=== PATIENT | female | born 1935 | race Caucasian/White ===

== ENCOUNTER 2017-09-06 16:05 | Inpatient (IN) | payer OTHER ==
[~2017-09-06] VITALS: Ht 160 cm; Wt 45.4 kg
[~2017-09-06 16:05] MED LIST: AGGRENOX CAP1 BOTTLE PO; AMLODIPINE BESYL5 MG; APETIGEN L790 MG/15; ARICEPT5 MG; ASPIR 8181 MG; DEPAKOTE ER500 MG; DULCOLAX5 MG; HYDROCHLOROTHIA25 MG; LISINOPRIL20 MG; METOPROLOL SUCC25 MG; NAMENDA1 EACH; NORVASC5 MG; SIMVASTATIN20 MG; ZANTAC150 MG
[2017-09-06] MEDS ORDERED: PEPCID AC20 MG (16:13)
== END 2017-09-15 13:43 | disposition home or self-care (01) | DRG 446 ==
LOC: ER 16:05 → SEC-K 09-07 12:52 → MEDI 09-07 12:52
PROC: BF37ZZZ Magnetic Resonance Imaging (MRI) of Pancreas (ICD-10-PCS; 2017-09-07)
PROC: 3E0336Z Introduction of Nutritional Substance into Peripheral Vein, Percutaneous Approach (ICD-10-PCS; 2017-09-09)
PROC: 02HV33Z Insertion of Infusion Device into Superior Vena Cava, Percutaneous Approach (ICD-10-PCS; 2017-09-12)
PROC: 0F798DZ Dilation of Common Bile Duct with Intraluminal Device, Via Natural or Artificial Opening Endoscopic (ICD-10-PCS; principal; 2017-09-14)
DX: K80.51 Calculus of bile duct without cholangitis or cholecystitis with obstruction (principal); K29.00 Acute gastritis without bleeding; E86.0 Dehydration; I10 Essential (primary) hypertension; F03.90 Unspecified dementia, unspecified severity, without behavioral disturbance, psychotic disturbance, mood disturbance, and anxiety; K57.30 Diverticulosis of large intestine without perforation or abscess without bleeding; Z90.49 Acquired absence of other specified parts of digestive tract; Z78.1 Physical restraint status

== ENCOUNTER 2017-09-15 16:35 | Inpatient (IN) | payer OTHER ==
[~2017-09-15] VITALS: Ht 160 cm; Wt 45.4 kg
[~2017-09-15 16:35] MED LIST changes: +PEPCID AC20 MG
== END 2017-09-20 18:18 | disposition home or self-care (01) | DRG 439 ==
LOC: ER 16:35 → MEDI 09-16 10:50 → SEC-K 09-16 10:50 → MEDI 09-16 16:21
PROC: BW28ZZZ Computerized Tomography (CT Scan) of Head (ICD-10-PCS; principal; 2017-09-16)
DX: K85.90 Acute pancreatitis without necrosis or infection, unspecified (principal); K91.89 Other postprocedural complications and disorders of digestive system; K80.51 Calculus of bile duct without cholangitis or cholecystitis with obstruction; Y84.8 Other medical procedures as the cause of abnormal reaction of the patient, or of later complication, without mention of misadventure at the time of the procedure; Y92.098 Other place in other non-institutional residence as the place of occurrence of the external cause; I11.9 Hypertensive heart disease without heart failure; E86.0 Dehydration; G30.8 Other Alzheimer's disease; F02.80 Dementia in other diseases classified elsewhere, unspecified severity, without behavioral disturbance, psychotic disturbance, mood disturbance, and anxiety; K57.30 Diverticulosis of large intestine without perforation or abscess without bleeding; K29.00 Acute gastritis without bleeding

== ENCOUNTER 2018-03-27 09:30 | Day surgery (SDC) | payer OTHER | END 2018-03-27 15:11 | disposition home or self-care (01) | LOC: AMB-ENDOS 09:30 | DX: K80.50 Calculus of bile duct without cholangitis or cholecystitis without obstruction (principal) ==

== ENCOUNTER 2018-09-26 09:19 | Outpatient (CLI) | payer OTHER | END 2018-09-26 16:43 | disposition home or self-care (01) | LOC: EDBD 09:19 → TOM 09:19 | DX: K30 Functional dyspepsia (principal); R10.30 Lower abdominal pain, unspecified ==

== ENCOUNTER 2018-12-04 17:28 | Emergency (ER) | payer OTHER ==
[~2018-12-04] VITALS: Ht 157.5 cm; Wt 48.5 kg
== END 2018-12-04 22:42 | disposition home or self-care (01) ==
LOC: ER 17:28
DX: R55 Syncope and collapse (principal); E86.0 Dehydration

== ENCOUNTER 2019-02-26 09:05 | Outpatient (CLI) | payer OTHER | END 2019-02-26 09:14 | disposition home or self-care (01) | LOC: MAMO-SONO 09:05 | DX: Z12.31 Encounter for screening mammogram for malignant neoplasm of breast (principal); Z87.898 Personal history of other specified conditions; N60.11 Diffuse cystic mastopathy of right breast; N60.12 Diffuse cystic mastopathy of left breast ==

== ENCOUNTER 2019-03-24 13:14 | Outpatient (CLI) | payer OTHER | END 2019-03-24 15:10 | disposition home or self-care (01) | LOC: SONOGRAMA 13:14 | DX: N60.11 Diffuse cystic mastopathy of right breast (principal); N60.12 Diffuse cystic mastopathy of left breast; N63.32 Unspecified lump in axillary tail of the left breast ==

== ENCOUNTER 2019-04-22 15:41 | Emergency (ER) | payer OTHER ==
[~2019-04-22] VITALS: Ht 152.4 cm; Wt 63.5 kg
== END 2019-04-22 19:31 | disposition home or self-care (01) ==
LOC: ER 15:41
DX: I95.89 Other hypotension (principal); S19.89XA Other specified injuries of other specified part of neck, initial encounter; M54.2 Cervicalgia; R53.1 Weakness; G30.8 Other Alzheimer's disease; F02.80 Dementia in other diseases classified elsewhere, unspecified severity, without behavioral disturbance, psychotic disturbance, mood disturbance, and anxiety; X58.XXXA Exposure to other specified factors, initial encounter; Y93.89 Activity, other specified; Y92.128 Other place in nursing home as the place of occurrence of the external cause; Y99.8 Other external cause status

== ENCOUNTER → 2019-08-12 | Outpatient (CLI) | payer OTHER | END | disposition home or self-care (01) | LOC: SONOGRAMA 10:54 → MAMO-SONO 11:15 | DX: N60.11 Diffuse cystic mastopathy of right breast (principal); N60.12 Diffuse cystic mastopathy of left breast ==

== ENCOUNTER 2020-09-23 10:48 | Outpatient (CLI) | payer OTHER | END 2020-09-23 10:58 | disposition home or self-care (01) | LOC: NUCLEAR 10:48 | PROVIDERS: ATTEND General Practice | DX: I87.2 Venous insufficiency (chronic) (peripheral) (principal); I73.9 Peripheral vascular disease, unspecified ==

== ENCOUNTER 2020-09-23 13:57 | Outpatient (CLI) | payer OTHER | END 2020-09-23 14:12 | disposition HB | LOC: RAD 13:57 | DX: M51.37 Other intervertebral disc degeneration, lumbosacral region (principal); N60.01 Solitary cyst of right breast; Z12.31 Encounter for screening mammogram for malignant neoplasm of breast; M15.0 Primary generalized (osteo)arthritis; M05.79 Rheumatoid arthritis with rheumatoid factor of multiple sites without organ or systems involvement ==

== ENCOUNTER 2020-10-07 11:00 | Outpatient (CLI) | payer OTHER | END 2020-10-07 11:03 | disposition home or self-care (01) | LOC: NUCLEAR 11:00 | PROVIDERS: ATTEND General Practice | DX: I73.9 Peripheral vascular disease, unspecified (principal); I87.2 Venous insufficiency (chronic) (peripheral) ==

== ENCOUNTER 2022-02-09 18:31 | Emergency (ER) | payer OTHER ==
[~2022-02-09] VITALS: Ht 160 cm; Wt 59.0 kg
== END 2022-02-09 20:59 | disposition home or self-care (01) ==
LOC: ER 18:31
DX: R05.9 Cough, unspecified (principal); I10 Essential (primary) hypertension; Z20.822 Contact with and (suspected) exposure to COVID-19

== ENCOUNTER 2022-07-04 10:18 | Inpatient (IN) | payer OTHER ==
[~2022-07-04] VITALS: Ht 152.4 cm; Wt 49.9 kg
--- NOTE | 2022-07-04 10:29 | NUR ---
SE RECIBE PACIENTE FEMENINA ALERTA Y ORIENTADA EN PERSONA, LLEGA EN MEREDITH DE EMERGENCIA. FAMILIAR REFIERE QUE LA PACIENTE TIENE VOMITOS Y DIARREAS, DESDE EL TRISHA DE JACKI. CANALIZADA CON 0.9 NSS 250ML Y CANULA A 2LT/MIN.
--- NOTE | 2022-07-04 13:05 | NUR ---
PTE ES EVALUADA POR DRA DOMINGO. PTE SE ORIENTA Y VERBALIZA QUE ACCEPTA. SE EJECUTA ORDEN MEDICA EN JOHNSON TOTALIDAD. PEND A RESULTADOS
[2022-07-11] MEDS ORDERED: DICLOFENAC SODI50 MG (11:50)
[2022-07-11] MEDS ORDERED: SIMVASTATIN20 MG (11:50)
[2022-07-11] MEDS ORDERED: PANTOPRAZOLE SO40 MG (11:50)
[2022-07-11] MEDS ORDERED: VITAMIN D3250 MCG (11:50)
[2022-07-11] MEDS ORDERED: CLOPIDOGREL BIS75 MG (11:50)
[2022-07-11] MEDS ORDERED: MEMANTINE HCL5 MG (11:50)
[2022-07-11] MEDS ORDERED: LISINOPRIL20 MG (11:50)
[2022-07-11] MEDS ORDERED: DONEPEZIL HCL10 MG (11:50)
[2022-07-12] MEDS ORDERED: PROTEINEX-18 LI30 ML PO (10:01)
[2022-07-12] MEDS ORDERED: DECADRON6 MG PO (10:01)
== END 2022-07-12 13:03 | DRG 177 ==
LOC: ER 10:18 → ICU-2 20:52 → ICU 20:52 → MEDJ 07-06 16:34 → ICU 07-06 16:35 → MEDJ 07-07 00:15
PROVIDERS: ADMIT Internal Medicine; ATTEND Internal Medicine
PROC: BB24ZZZ Computerized Tomography (CT Scan) of Bilateral Lungs (ICD-10-PCS; principal; 2022-07-05)
PROC: 02HV33Z Insertion of Infusion Device into Superior Vena Cava, Percutaneous Approach (ICD-10-PCS; 2022-07-05)
PROC: 3E0F7GC Introduction of Other Therapeutic Substance into Respiratory Tract, Via Natural or Artificial Opening (ICD-10-PCS; 2022-07-05)
DX: U07.1 COVID-19 (principal); J12.82 Pneumonia due to coronavirus disease 2019; N17.8 Other acute kidney failure; N39.0 Urinary tract infection, site not specified; A09 Infectious gastroenteritis and colitis, unspecified; G30.8 Other Alzheimer's disease; F02.80 Dementia in other diseases classified elsewhere, unspecified severity, without behavioral disturbance, psychotic disturbance, mood disturbance, and anxiety; K21.9 Gastro-esophageal reflux disease without esophagitis; I12.9 Hypertensive chronic kidney disease with stage 1 through stage 4 chronic kidney disease, or unspecified chronic kidney disease; N18.9 Chronic kidney disease, unspecified; E86.0 Dehydration; K57.90 Diverticulosis of intestine, part unspecified, without perforation or abscess without bleeding; I11.9 Hypertensive heart disease without heart failure

== ENCOUNTER 2022-07-26 08:32 | Emergency (ER) | payer OTHER ==
[~2022-07-26] VITALS: Ht 157.5 cm; Wt 56.7 kg
[~2022-07-26 08:32] MED LIST changes: +CLOPIDOGREL BIS75 MG; +DECADRON6 MG PO; +DICLOFENAC SODI50 MG; +DONEPEZIL HCL10 MG; +MEMANTINE HCL5 MG; +PANTOPRAZOLE SO40 MG; +PROTEINEX-18 LI30 ML PO; +VITAMIN D3250 MCG
== END 2022-07-26 13:51 | disposition home or self-care (01) ==
LOC: ER 08:32
DX: I87.2 Venous insufficiency (chronic) (peripheral) (principal); Z45.2 Encounter for adjustment and management of vascular access device

== ENCOUNTER 2022-10-07 17:44 | Emergency (ER) | payer OTHER ==
[~2022-10-07] VITALS: Ht 160 cm; Wt 59.0 kg
== END 2022-10-07 23:29 | disposition home or self-care (01) ==
LOC: ER 17:44
DX: R55 Syncope and collapse (principal); G30.9 Alzheimer's disease, unspecified; F02.80 Dementia in other diseases classified elsewhere, unspecified severity, without behavioral disturbance, psychotic disturbance, mood disturbance, and anxiety

== ENCOUNTER 2023-05-27 00:06 | Emergency (ER) | payer OTHER ==
[~2023-05-27] VITALS: Ht 162.6 cm; Wt 45.4 kg
[2023-05-27] MEDS ORDERED: FERROCITE324 MG PO (00:57)
[2023-05-27 05:17] LABS: HEMATOCRIT 38.9 % (36.0-45.00); HEMOGLOBIN 12.8 g/dL (12.0-15.00); MEAN CELL VOLUME 88.7 fL (80.00-100.00); MEAN CORPUSCULAR HEMOGLOBIN 29.2 pg (27.00-32.0); MEAN CORPUSCULAR HGB CONC 32.9 g/dl (32.0-36.0); PLATELET COUNT 274 K/uL (150-450); RED BLOOD COUNT 4.38 M/uL (4.00-6.00); RED CELL DISTRIBUTION WIDTH 14.1 % (11.5-14.5)
[2023-05-27 05:26] LABS: CALCIUM 9.8 mg/dL (8.5-10.1); GFR 52.69; POTASSIUM 4.2 mEq/L (3.5-5.1)
== END 2023-05-27 07:44 | disposition home or self-care (01) ==
LOC: ER 00:06
DX: K29.70 Gastritis, unspecified, without bleeding (principal)
CPT/HCPCS: 36415; 96365; 96372; 99284; J2765; J3490

== ENCOUNTER 2024-01-30 11:11 | Emergency (ER) | payer OTHER ==
[~2024-01-30] VITALS: Ht 165.1 cm; Wt 63.5 kg
[~2024-01-30 11:11] MED LIST changes: +FERROCITE324 MG PO
[2024-01-30] MEDS ORDERED: ONDANSETRON HCL 2 MG/ML VIAL IV ONE (13:00)
[2024-01-30 13:31] LABS: HEMATOCRIT 31.3 % (36.0-45.00); HEMOGLOBIN 10.2 g/dL (12.0-15.00); MEAN CELL VOLUME 90.8 fL (80.00-100.00); MEAN CORPUSCULAR HEMOGLOBIN 29.8 pg (27.00-32.0); MEAN CORPUSCULAR HGB CONC 32.8 g/dl (32.0-36.0); PLATELET COUNT 325 K/uL (150-450); RED BLOOD COUNT 3.44 M/uL (4.00-6.00)
[2024-01-30 13:55] LABS: ALBUMIN 2.9 gm/dL (3.4-5.0); BILIRUBIN TOTAL 0.97 mg/dL (0.3-1.2); CALCIUM 9.5 mg/dL (8.5-10.1); CREATININE SERUM 0.9 mg/dL (0.55-1.02); GFR 59.37; GLOBULINA 4.3 G/DL (2.4-3.5); POTASSIUM 3.98 mEq/L (3.5-5.1); TOTAL PROTEIN 7.2 gm/dL (6.4-8.2)
== END 2024-01-30 19:08 | disposition home or self-care (01) ==
LOC: ER 11:11
PROVIDERS: General Practice
DX: R53.1 Weakness (principal); Z20.822 Contact with and (suspected) exposure to COVID-19
CPT/HCPCS: 36415; 96365; 99282; J2405

== ENCOUNTER 2024-05-15 10:29 | Inpatient (IN) | payer OTHER ==
[~2024-05-15] VITALS: Ht 152.4 cm; Wt 59.0 kg
[2024-05-15] MEDS ORDERED: 0.9 % SODIUM CHLORIDE 1,000 ML IV SCH (11:00)
[2024-05-15] MEDS ORDERED: FOLIC ACID0.8 M1 (11:02)
[2024-05-15] MEDS ORDERED: PROTONIX40 MG PO (11:02)
[2024-05-15] MEDS ORDERED: CYANOCOBALAMIN5 GM (11:02)
[2024-05-15 12:28] LABS: HEMATOCRIT 32.3 % (36.0-45.00); MEAN CELL VOLUME 89.3 fL (80.00-100.00); PLATELET COUNT 369 K/uL (150-450); RED BLOOD COUNT 3.62 M/uL (4.00-6.00)
[2024-05-15 12:31] LABS: HEMOGLOBIN 10.3 g/dL (12.0-15.00); MEAN CORPUSCULAR HEMOGLOBIN 28.4 pg (27.00-32.0)
[2024-05-15 13:05] LABS: ALBUMIN 2.3 gm/dL (3.4-5.0); BILIRUBIN TOTAL 0.86 mg/dL (0.3-1.2); CREATININE SERUM 1.15 mg/dL (0.55-1.02); GFR 44.74; GLOBULINA 5.4 G/DL (2.4-3.5); POTASSIUM 3.57 mEq/L (3.5-5.1); TOTAL PROTEIN 7.7 gm/dL (6.4-8.2)
[2024-05-15 14:51] LABS: URINE APPEARANCE Clear; URINE BILIRRUBIN Small (NEGATIVE); URINE BLOOD Trace; URINE COLOR Dark Yellow; URINE GLUCOSE Negative (NEGATIVE); URINE KETONE Negative (NEGATIVE); URINE LEUKOCYTE Small; URINE NITRATE Negative; URINE PROTEIN 30 (NEGATIVE)
[2024-05-15 14:52] LABS: URINE RBC 30.9 uL (0.0-20.8)
[2024-05-15 15:11] LABS: URINE BACTERIA > 9821.5 uL (0.0-1933); URINE CAST 0.91 uL (0.0-1.40)
[2024-05-15 15:12] LABS: URINE MUCUS SCANT
[2024-05-15] MEDS ORDERED: CEFTRIAXONE SODIUM 1,000 MG VIAL IV ONE (15:30)
[2024-05-15] MEDS ORDERED: CEFTRIAXONE SODIUM 2,000 MG in 0.9 % SODIUM CHLORIDE 100 ML IV SCH (17:39)
[2024-05-15] MEDS ORDERED: INSULIN LISPRO 1,000 UNIT/10 ML UNITS SUBCUTANEO PRN (17:45)
[2024-05-15] MEDS ORDERED: ONDANSETRON HCL 4 MG in 0.9 % SODIUM CHLORIDE 50 ML IV PRN (17:45)
[2024-05-15] MEDS ORDERED: DEXTROSE 50 % IN WATER 0.5 G/ML DISP.SYRIN IV PRN (17:45)
[2024-05-15] MEDS ORDERED: ACETAMINOPHEN 500 MG GEL..CAP PO PRN (17:45)
[2024-05-15] MEDS ORDERED: SODIUM CHLORIDE 0.45 % 1,000 ML IV SCH (17:45)
[2024-05-15 19:52] LABS: INR 1.09; PARTIAL THROMBOPLASTIN TIME 28.3 SECONDS (22.0-34.0); PROTHROMBIN TIME 11.8 SECONDS (9.0-11.5)
[2024-05-15 19:53] LABS: MAGNESIUM 2.4 mg/dL (1.8-2.4); PHOSPHOROUS 2.3 mg/dL (2.5-4.9)
[2024-05-15 19:56] LABS: C-REACTIVE PROTEIN 12.7 MG/DL (0.00-0.29)
[2024-05-15 22:49] VITALS: BP 134/70; O2SAT 97
[2024-05-16 00:54] VITALS: BP 116/71; O2SAT 98
[2024-05-16 08:00] VITALS: BP 145/80
[2024-05-16] MEDS ORDERED: CLOPIDOGREL BISULFATE 75 MG TABLET PO SCH (09:00)
[2024-05-16] MEDS ORDERED: ENOXAPARIN SODIUM 40 MG/0.4 ML SYRINGE SUBCUTANEO SCH (09:00)
[2024-05-16] MEDS ORDERED: FAMOTIDINE/PF 20 MG in 0.9 % SODIUM CHLORIDE 8 ML IV PUSH SCH (09:00)
[2024-05-16] MEDS ORDERED: LISINOPRIL 20 MG TABLET PO SCH (09:00)
[2024-05-16] MEDS ORDERED: SIMVASTATIN 20 MG TABLET PO SCH (17:00)
[2024-05-16] MEDS ORDERED: DONEPEZIL HCL 10 MG TABLET PO SCH (17:00)
[2024-05-16 17:32] VITALS: BP 127/78; O2SAT 100
[2024-05-17 00:34] VITALS: BP 134/67
[2024-05-17 08:36] VITALS: BP 123/73; O2SAT 98
[2024-05-17 17:13] VITALS: BP 120/68; O2SAT 98
[2024-05-18 00:55] VITALS: BP 55/84
[2024-05-18 08:03] LABS: HEMATOCRIT 27.1 % (36.0-45.00); MEAN CELL VOLUME 86.7 fL (80.00-100.00); MEAN CORPUSCULAR HEMOGLOBIN 28.9 pg (27.00-32.0); MEAN CORPUSCULAR HGB CONC 33.3 g/dl (32.0-36.0); PLATELET COUNT 306 K/uL (150-450); RED BLOOD COUNT 3.13 M/uL (4.00-6.00); RED CELL DISTRIBUTION WIDTH 14.7 % (11.5-14.5)
[2024-05-18 08:22] VITALS: BP 150/87; O2SAT 98
[2024-05-18 08:34] LABS: ALBUMIN 1.8 gm/dL (3.4-5.0); BILIRUBIN TOTAL 0.4 mg/dL (0.3-1.2); CREATININE SERUM 0.72 mg/dL (0.55-1.02); GFR 76.8; MAGNESIUM 1.8 mg/dL (1.8-2.4); PHOSPHOROUS 2.4 mg/dL (2.5-4.9); POTASSIUM 3.63 mEq/L (3.5-5.1); TOTAL PROTEIN 5.8 gm/dL (6.4-8.2)
[2024-05-18 08:40] LABS: C-REACTIVE PROTEIN 14.7 MG/DL (0.00-0.29)
[2024-05-18 17:07] VITALS: BP 141/80; O2SAT 97
[2024-05-19 01:05] VITALS: BP 127/76
[2024-05-19 08:12] VITALS: BP 105/56; O2SAT 99
[2024-05-19 15:49] LABS: URINE APPEARANCE Clear; URINE BILIRRUBIN Negative (NEGATIVE); URINE COLOR Yellow; URINE GLUCOSE Negative (NEGATIVE); URINE KETONE Negative (NEGATIVE); URINE LEUKOCYTE Negative; URINE NITRATE Negative; URINE PROTEIN Negative (NEGATIVE); URINE UROBILINOGEN 0.2 E.U./dl
[2024-05-19 15:52] LABS: URINE EPITHELIAL CELLS 9.7 uL (0.0-38.8); URINE RBC 26.8 uL (0.0-20.8); URINE WBC 4.4 uL (0.0-23.2)
[2024-05-19 16:12] LABS: URINE BACTERIA 1.2 uL (0.0-1933); URINE BLOOD TRACE
[2024-05-19 16:55] VITALS: BP 138/70
[2024-05-20 00:31] VITALS: BP 126/78; O2SAT 95
[2024-05-20 08:07] VITALS: BP 130/66; O2SAT 99
[2024-05-20 16:25] VITALS: BP 152/78
[2024-05-20 18:20] LABS: HEMATOCRIT 26.8 % (36.0-45.00); HEMOGLOBIN 8.8 g/dL (12.0-15.00); MEAN CORPUSCULAR HEMOGLOBIN 28.9 pg (27.00-32.0); MEAN CORPUSCULAR HGB CONC 32.8 g/dl (32.0-36.0); PLATELET COUNT 287 K/uL (150-450); RED BLOOD COUNT 3.04 M/uL (4.00-6.00); RED CELL DISTRIBUTION WIDTH 14.7 % (11.5-14.5)
[2024-05-20 18:39] LABS: ALBUMIN 1.8 gm/dL (3.4-5.0); BILIRUBIN TOTAL 0.26 mg/dL (0.3-1.2); CALCIUM 8.4 mg/dL (8.5-10.1); CREATININE SERUM 0.72 mg/dL (0.55-1.02); GFR 76.8; MAGNESIUM 1.8 mg/dL (1.8-2.4); PHOSPHOROUS 2.7 mg/dL (2.5-4.9); POTASSIUM 4.24 mEq/L (3.5-5.1); TOTAL PROTEIN 5.8 gm/dL (6.4-8.2)
[2024-05-21 01:17] VITALS: BP 132/66; O2SAT 99
[2024-05-21 08:55] VITALS: BP 131/73; O2SAT 99
[2024-05-21] MEDS ORDERED: FAMOtidine 20 MG TABLET PO SCH (09:00)
[2024-05-21 17:51] VITALS: BP 119/75
[2024-05-22 02:48] VITALS: BP 140/68; O2SAT 95
[2024-05-22] MEDS ORDERED: MIDAZOLAM HCL 2 MG/2 ML VIAL IV ONE (12:30)
[2024-05-22 17:57] VITALS: BP 116/78; O2SAT 99
[2024-05-22 18:07] VITALS: BP 154/83; O2SAT 98
[2024-05-23 01:30] VITALS: BP 126/70; O2SAT 97
[2024-05-23 08:36] VITALS: BP 134/74
[2024-05-23 16:11] VITALS: BP 133/52
[2024-05-24 01:32] VITALS: BP 120/70; O2SAT 97
[2024-05-24 08:52] VITALS: BP 117/53; O2SAT 97
== END 2024-05-24 10:52 | disposition home or self-care (01) | DRG 690 ==
LOC: ER 10:29 → MEDJ 18:54
PROVIDERS: Emergency Medicine; General Practice; Internal Medicine Infectious Disease; ADMIT Internal Medicine; ATTEND Internal Medicine
PROC: B020ZZZ Computerized Tomography (CT Scan) of Brain (ICD-10-PCS; 2024-05-15)
PROC: 0DH63UZ Insertion of Feeding Device into Stomach, Percutaneous Approach (ICD-10-PCS; 2024-05-22)
PROC: 3E0G76Z Introduction of Nutritional Substance into Upper GI, Via Natural or Artificial Opening (ICD-10-PCS; principal; 2024-05-23)
DX: N39.0 Urinary tract infection, site not specified (principal); E87.0 Hyperosmolality and hypernatremia; E46 Unspecified protein-calorie malnutrition; E86.0 Dehydration; R73.9 Hyperglycemia, unspecified; D64.89 Other specified anemias; R13.19 Other dysphagia; R63.0 Anorexia; R73.03 Prediabetes; G30.8 Other Alzheimer's disease; F02.80 Dementia in other diseases classified elsewhere, unspecified severity, without behavioral disturbance, psychotic disturbance, mood disturbance, and anxiety; E78.5 Hyperlipidemia, unspecified; Z68.23 Body mass index [BMI] 23.0-23.9, adult

== ENCOUNTER 2024-06-02 14:27 | Inpatient (IN) | payer OTHER ==
[~2024-06-02] VITALS: Ht 162.6 cm; Wt 54.4 kg
[~2024-06-02 14:27] MED LIST changes: +CYANOCOBALAMIN5 GM; +FOLIC ACID0.8 M1; +PROTONIX40 MG PO
[2024-06-02 17:02] LABS: HEMATOCRIT 28.3 % (36.0-45.00); HEMOGLOBIN 9.4 g/dL (12.0-15.00); MEAN CELL VOLUME 87.4 fL (80.00-100.00); MEAN CORPUSCULAR HEMOGLOBIN 28.9 pg (27.00-32.0); MEAN CORPUSCULAR HGB CONC 33.1 g/dl (32.0-36.0); PLATELET COUNT 477 K/uL (150-450); RED BLOOD COUNT 3.24 M/uL (4.00-6.00); RED CELL DISTRIBUTION WIDTH 14.9 % (11.5-14.5)
[2024-06-02] MEDS ORDERED: CEFTRIAXONE SODIUM 1,000 MG VIAL IV ONE (17:30)
[2024-06-02] MEDS ORDERED: 0.9 % SODIUM CHLORIDE 1,000 ML IV SCH (18:00)
[2024-06-02] MEDS ORDERED: ONDANSETRON HCL 4 MG in 0.9 % SODIUM CHLORIDE 50 ML IV PRN (18:00)
[2024-06-02] MEDS ORDERED: 0.9 % SODIUM CHLORIDE 1,000 ML IV ONE (18:00)
[2024-06-02] MEDS ORDERED: ACETAMINOPHEN 500 MG GEL..CAP PO PRN (18:00)
[2024-06-02 18:30] LABS: ALBUMIN 2.2 gm/dL (3.4-5.0); BILIRUBIN TOTAL 1.1 mg/dL (0.3-1.2); CALCIUM 9.5 mg/dL (8.5-10.1); CREATININE SERUM 0.78 mg/dL (0.55-1.02); GFR 70.03; GLOBULINA 5.7 G/DL (2.4-3.5); INR 1.08; POTASSIUM 4.06 mEq/L (3.5-5.1); PROTHROMBIN TIME 11.7 SECONDS (9.0-11.5); TOTAL PROTEIN 7.9 gm/dL (6.4-8.2)
[2024-06-02 18:47] LABS: PH,URINE 5.5 (5.0-8.0); URINE APPEARANCE Clear; URINE BILIRRUBIN Small (NEGATIVE); URINE BLOOD Negative; URINE COLOR Dark Yellow; URINE GLUCOSE Negative (NEGATIVE); URINE KETONE Trace (NEGATIVE); URINE LEUKOCYTE Small; URINE NITRATE Negative; URINE PROTEIN Trace (NEGATIVE)
[2024-06-02 18:48] LABS: URINE BACTERIA 425.8 uL (0.0-1933); URINE EPITHELIAL CELLS 29.2 uL (0.0-38.8); URINE RBC 24.5 uL (0.0-20.8); URINE WBC 22.4 uL (0.0-23.2)
[2024-06-02 19:03] LABS: URINE CAST 1.37 uL (0.0-1.40)
[2024-06-02 19:04] LABS: URINE EPITHELIAL CELLS 0-4 /HPF
[2024-06-02 23:48] VITALS: BP 110/76; O2SAT 100
[2024-06-03 04:30] VITALS: BP 121/75
[2024-06-03] MEDS ORDERED: ENOXAPARIN SODIUM 40 MG/0.4 ML SYRINGE SUBCUTANEO SCH (09:00)
[2024-06-03] MEDS ORDERED: FAMOTIDINE/PF 20 MG in 0.9 % SODIUM CHLORIDE 8 ML IV PUSH SCH (09:00)
[2024-06-03] MEDS ORDERED: MEMANTINE HCL 5 MG TABLET PO SCH (09:00)
[2024-06-03] MEDS ORDERED: CEFTRIAXONE SODIUM 2,000 MG in 0.9 % SODIUM CHLORIDE 100 ML IV SCH (09:00)
[2024-06-03 09:56] VITALS: BP 120/77; O2SAT 97
[2024-06-03] MEDS ORDERED: SIMVASTATIN 20 MG TABLET PO SCH (17:00)
[2024-06-03] MEDS ORDERED: CLOPIDOGREL BISULFATE 75 MG TABLET PO SCH (17:00)
[2024-06-03] MEDS ORDERED: DONEPEZIL HCL 10 MG TABLET PO SCH (17:00)
[2024-06-03] MEDS ORDERED: FERROUS SULFATE 325 MG TABLET.EC PO SCH (17:00)
[2024-06-03 18:45] VITALS: BP 123/73; O2SAT 96
[2024-06-03] MEDS ORDERED: MEROPENEM 500 MG/VIAL VIAL IV SCH (20:00)
[2024-06-04 02:09] VITALS: BP 105/65
[2024-06-04 05:18] LABS: ALBUMIN 1.8 gm/dL (3.4-5.0); BILIRUBIN TOTAL 1.81 mg/dL (0.3-1.2); CALCIUM 8.7 mg/dL (8.5-10.1); CREATININE SERUM 0.59 mg/dL (0.55-1.02); GFR 96.64; GLOBULINA 3.8 G/DL (2.4-3.5); PHOSPHOROUS 2.1 mg/dL (2.5-4.9); POTASSIUM 3.68 mEq/L (3.5-5.1); TOTAL PROTEIN 5.6 gm/dL (6.4-8.2)
[2024-06-04 05:20] LABS: HEMATOCRIT 24.5 % (36.0-45.00); HEMOGLOBIN 8.1 g/dL (12.0-15.00); MEAN CELL VOLUME 87.5 fL (80.00-100.00); MEAN CORPUSCULAR HEMOGLOBIN 28.9 pg (27.00-32.0); MEAN CORPUSCULAR HGB CONC 33.3 g/dl (32.0-36.0); PLATELET COUNT 367 K/uL (150-450); RED CELL DISTRIBUTION WIDTH 14.9 % (11.5-14.5)
[2024-06-04 05:24] LABS: C-REACTIVE PROTEIN 13.5 MG/DL (0.00-0.29)
[2024-06-04 08:53] VITALS: BP 110/70; O2SAT 98
[2024-06-04] MEDS ORDERED: CEFTAZIDIME/AVIBACTAM 2.5 GM VIAL IV SCH (13:00)
[2024-06-04 18:17] VITALS: BP 120/74
[2024-06-05 02:02] VITALS: BP 108/62
[2024-06-05 04:57] LABS: URINE APPEARANCE Clear; URINE BILIRRUBIN Small (NEGATIVE); URINE BLOOD Small; URINE COLOR Dark Yellow; URINE GLUCOSE Negative (NEGATIVE); URINE KETONE Trace (NEGATIVE); URINE LEUKOCYTE Small; URINE NITRATE Negative; URINE PROTEIN 30 (NEGATIVE)
[2024-06-05 05:00] LABS: URINE BACTERIA 22.6 uL (0.0-1933); URINE EPITHELIAL CELLS 11.7 uL (0.0-38.8); URINE RBC 145.8 uL (0.0-20.8); URINE WBC 50.7 uL (0.0-23.2)
[2024-06-05 05:40] LABS: URINE CAST 0.76 uL (0.0-1.40)
[2024-06-05 07:04] LABS: PLATELET COUNT 341 K/uL (150-450); RED BLOOD COUNT 2.57 M/uL (4.00-6.00); RED CELL DISTRIBUTION WIDTH 15.5 % (11.5-14.5)
[2024-06-05 07:11] LABS: ALBUMIN 1.7 gm/dL (3.4-5.0); BILIRUBIN TOTAL 1.13 mg/dL (0.3-1.2); BILIRUBIN,CONJUGATED 0.89 mg/dL (0.0-0.2); BILIRUBIN,UNCONJUGATED 0.24 mg/dL (0.0-0.6); CALCIUM 8.4 mg/dL (8.5-10.1); CREATININE SERUM 0.46 mg/dL (0.55-1.02); GFR 128.8; GLOBULINA 3.9 G/DL (2.4-3.5); MAGNESIUM 1.8 mg/dL (1.8-2.4); PHOSPHOROUS 2.1 mg/dL (2.5-4.9); POTASSIUM 3.65 mEq/L (3.5-5.1); TOTAL PROTEIN 5.6 gm/dL (6.4-8.2)
[2024-06-05 07:15] LABS: C-REACTIVE PROTEIN 12.6 MG/DL (0.00-0.29)
[2024-06-05 08:08] LABS: HEMATOCRIT 22.1 % (36.0-45.00); HEMOGLOBIN 7.5 g/dL (12.0-15.00); MEAN CORPUSCULAR HEMOGLOBIN 29.1 pg (27.00-32.0)
[2024-06-05] MEDS ORDERED: CEFTAZIDIME/AVIBACTAM 2.5 GM VIAL IV SCH (09:00)
[2024-06-05 09:27] VITALS: BP 115/81; O2SAT 99
[2024-06-05] MEDS ORDERED: SOD FERRIC GLUC COMPLX/SUCROSE 125 MG in 0.9 % SODIUM CHLORIDE 100 ML IV SCH (12:45)
[2024-06-05] MEDS ORDERED: AMINO ACIDS 1 EACH TABLET PO SCH (13:00)
[2024-06-05] MEDS ORDERED: ALBUMIN HUMAN-25 0.25GM/ML (50ML) VIAL IV SCH (17:00)
[2024-06-05 19:58] VITALS: BP 104/54; O2SAT 99
[2024-06-06 02:26] VITALS: BP 144/73; O2SAT 96
[2024-06-06 10:31] VITALS: BP 132/71; O2SAT 93
[2024-06-06 12:40] LABS: HEMATOCRIT 34.1 % (36.0-45.00); HEMOGLOBIN 11.6 g/dL (12.0-15.00); MEAN CELL VOLUME 83.8 fL (80.00-100.00); MEAN CORPUSCULAR HEMOGLOBIN 28.5 pg (27.00-32.0); PLATELET COUNT 336 K/uL (150-450); RED BLOOD COUNT 4.07 M/uL (4.00-6.00); RED CELL DISTRIBUTION WIDTH 15.5 % (11.5-14.5)
[2024-06-06 14:16] LABS: ALBUMIN 1.9 gm/dL (3.4-5.0); BILIRUBIN TOTAL 1.07 mg/dL (0.3-1.2); BILIRUBIN,CONJUGATED 0.51 mg/dL (0.0-0.2); BILIRUBIN,UNCONJUGATED 0.56 mg/dL (0.0-0.6); CALCIUM 8.7 mg/dL (8.5-10.1); CREATININE SERUM 0.41 mg/dL (0.55-1.02); GFR 147.09; POTASSIUM 3.75 mEq/L (3.5-5.1); TOTAL PROTEIN 5.9 gm/dL (6.4-8.2)
[2024-06-06 14:18] LABS: AMYLASE 108 U/L (25-115)
[2024-06-06 14:21] LABS: LIPASE 170 U/L (13-75)
[2024-06-06 19:51] VITALS: BP 140/82; O2SAT 94
[2024-06-06] MEDS ORDERED: VANCOMYCIN HCL 1,000 MG VIAL IV SCH (21:00)
[2024-06-07 03:56] VITALS: BP 118/52; O2SAT 95
[2024-06-07 08:55] VITALS: BP 164/80; O2SAT 96
[2024-06-07] MEDS ORDERED: URSODIOL 300 MG CAPSULE PO NR (10:15)
[2024-06-07] MEDS ORDERED: URSODIOL 300 MG CAPSULE PO SCH (17:00)
[2024-06-07 18:19] VITALS: BP 160/82; O2SAT 96
[2024-06-08 01:13] VITALS: BP 148/73; O2SAT 93
[2024-06-08 08:00] LABS: HEMATOCRIT 32.2 % (36.0-45.00); MEAN CELL VOLUME 84.9 fL (80.00-100.00); MEAN CORPUSCULAR HEMOGLOBIN 28.9 pg (27.00-32.0); MEAN CORPUSCULAR HGB CONC 34.1 g/dl (32.0-36.0); PLATELET COUNT 326 K/uL (150-450); RED CELL DISTRIBUTION WIDTH 15.8 % (11.5-14.5)
[2024-06-08 11:26] VITALS: BP 147/70; O2SAT 95
[2024-06-08] MEDS ORDERED: AMINO ACIDS/PROTEIN HYDROLYS 30 ML BLIST.PACK PO SCH (17:00)
[2024-06-08 17:51] VITALS: BP 160/85; O2SAT 95
[2024-06-09 01:07] VITALS: BP 160/78; O2SAT 98
[2024-06-09 07:12] LABS: ALBUMIN 1.9 gm/dL (3.4-5.0); BILIRUBIN TOTAL 0.73 mg/dL (0.3-1.2); CALCIUM 8.9 mg/dL (8.5-10.1); CREATININE SERUM 0.38 mg/dL (0.55-1.02); GFR 160.57; GLOBULINA 3.8 G/DL (2.4-3.5); PHOSPHOROUS 2.2 mg/dL (2.5-4.9); POTASSIUM 3.77 mEq/L (3.5-5.1); TOTAL PROTEIN 5.7 gm/dL (6.4-8.2)
[2024-06-09 08:32] VITALS: BP 164/80
[2024-06-09 19:03] VITALS: BP 184/77
[2024-06-10 00:24] VITALS: BP 180/78; O2SAT 98
[2024-06-10 06:39] LABS: HEMATOCRIT 33.8 % (36.0-45.00); MEAN CELL VOLUME 86.7 fL (80.00-100.00); PLATELET COUNT 350 K/uL (150-450); RED CELL DISTRIBUTION WIDTH 15.7 % (11.5-14.5)
[2024-06-10 07:02] LABS: HEMOGLOBIN 11.2 g/dL (12.0-15.00); MEAN CORPUSCULAR HEMOGLOBIN 28.7 pg (27.00-32.0)
[2024-06-10 07:11] LABS: ALBUMIN 1.9 gm/dL (3.4-5.0); BILIRUBIN TOTAL 0.79 mg/dL (0.3-1.2); CREATININE SERUM 0.37 mg/dL (0.55-1.02); GFR 165.59; GLOBULINA 3.6 G/DL (2.4-3.5); MAGNESIUM 1.9 mg/dL (1.8-2.4); PHOSPHOROUS 2.5 mg/dL (2.5-4.9); POTASSIUM 3.7 mEq/L (3.5-5.1); TOTAL PROTEIN 5.5 gm/dL (6.4-8.2)
[2024-06-10 07:12] LABS: C-REACTIVE PROTEIN 8.45 MG/DL (0.00-0.29)
[2024-06-10 08:00] VITALS: BP 158/75
[2024-06-10 18:18] VITALS: BP 174/66
[2024-06-10] MEDS ORDERED: VANCOMYCIN HCL 5 MG/ML REDILUIDO IV SCH (21:00)
[2024-06-10] MEDS ORDERED: VANCOMYCIN HCL 1,000 MG VIAL IV SCH (21:00)
[2024-06-10 21:57] VITALS: BP 126/60
[2024-06-11 00:20] VITALS: BP 149/74; O2SAT 97
[2024-06-11 09:35] VITALS: BP 151/76; O2SAT 96
[2024-06-11 15:35] LABS: ALBUMIN 1.7 gm/dL (3.4-5.0); BILIRUBIN TOTAL 0.5 mg/dL (0.3-1.2); BILIRUBIN,CONJUGATED 0.25 mg/dL (0.0-0.2); BILIRUBIN,UNCONJUGATED 0.25 mg/dL (0.0-0.6); TOTAL PROTEIN 5.4 gm/dL (6.4-8.2)
[2024-06-11] MEDS ORDERED: ANIDULAFUNGIN 100 MG VIAL IV SCH (17:00)
[2024-06-11 17:54] LABS: ABG PH 7.486 (7.35-7.45); ABG PO2 84.2 mmHg (80-100); ABG pCO2 38.3 mmHg (35-45); BASE EXCESS 4.7 mmol/l; BICARBONATE 28.3 mmol/l (23-25); SaO2 91.3 %; Tco2 29.4 mmol/l; allen test SATISFACTORY; o2 21 %; puncture site BRADIAL RIGHT
[2024-06-11 18:37] VITALS: BP 154/81
[2024-06-12 02:01] VITALS: BP 109/53; O2SAT 99
[2024-06-12 06:47] LABS: HEMATOCRIT 30.7 % (36.0-45.00); HEMOGLOBIN 10.1 g/dL (12.0-15.00); MEAN CELL VOLUME 87.7 fL (80.00-100.00); MEAN CORPUSCULAR HEMOGLOBIN 28.8 pg (27.00-32.0); MEAN CORPUSCULAR HGB CONC 32.9 g/dl (32.0-36.0); PLATELET COUNT 336 K/uL (150-450); RED CELL DISTRIBUTION WIDTH 15.6 % (11.5-14.5)
[2024-06-12 07:10] LABS: ALBUMIN 1.7 gm/dL (3.4-5.0); BILIRUBIN TOTAL 0.4 mg/dL (0.3-1.2); CALCIUM 8.6 mg/dL (8.5-10.1); CREATININE SERUM 0.41 mg/dL (0.55-1.02); GFR 147.09; GLOBULINA 3.6 G/DL (2.4-3.5); POTASSIUM 3.98 mEq/L (3.5-5.1); TOTAL PROTEIN 5.3 gm/dL (6.4-8.2)
[2024-06-12 07:12] LABS: C-REACTIVE PROTEIN 6.82 MG/DL (0.00-0.29)
[2024-06-12 09:13] VITALS: BP 127/66; O2SAT 98
[2024-06-12] MEDS ORDERED: ANIDULAFUNGIN 100 MG VIAL IV SCH (12:00)
[2024-06-12 18:09] VITALS: BP 112/55
[2024-06-13 00:17] VITALS: BP 140/77; O2SAT 99
[2024-06-13 08:53] VITALS: BP 155/66; O2SAT 98
[2024-06-13 16:47] VITALS: BP 155/82
[2024-06-14 02:50] VITALS: BP 127/83; O2SAT 95
[2024-06-14 08:52] VITALS: BP 130/63; O2SAT 96
[2024-06-14 08:52] LABS: ALBUMIN 1.7 gm/dL (3.4-5.0); CALCIUM 8.7 mg/dL (8.5-10.1); CREATININE SERUM 0.4 mg/dL (0.55-1.02); GFR 151.34; MAGNESIUM 2.1 mg/dL (1.8-2.4); PHOSPHOROUS 2.9 mg/dL (2.5-4.9); POTASSIUM 4.34 mEq/L (3.5-5.1)
[2024-06-14 17:48] VITALS: BP 159/77; O2SAT 96
[2024-06-15 02:46] VITALS: BP 96/68; O2SAT 95
[2024-06-15 09:11] VITALS: BP 137/71; O2SAT 98
[2024-06-15 09:52] LABS: CALCIUM 9.3 mg/dL (8.5-10.1); CREATININE SERUM 0.42 mg/dL (0.55-1.02); GFR 143.05; POTASSIUM 4.36 mEq/L (3.5-5.1)
[2024-06-15 16:57] VITALS: BP 178/76; O2SAT 94
[2024-06-15 21:58] LABS: URINE APPEARANCE Clear; URINE BILIRRUBIN Negative (NEGATIVE); URINE BLOOD NHT; URINE COLOR Yellow; URINE GLUCOSE Negative (NEGATIVE); URINE KETONE Negative (NEGATIVE); URINE LEUKOCYTE Trace; URINE NITRATE Negative; URINE PROTEIN 30 (NEGATIVE); URINE UROBILINOGEN 0.2 E.U./dl
[2024-06-15 22:01] LABS: URINE BACTERIA 54.1 uL (0.0-1933); URINE EPITHELIAL CELLS 14.5 uL (0.0-38.8); URINE RBC 31.2 uL (0.0-20.8); URINE WBC 30.8 uL (0.0-23.2)
[2024-06-15 22:11] LABS: URINE CAST 0.45 uL (0.0-1.40)
[2024-06-15 22:12] LABS: URINE YEAST FEW /hpf
[2024-06-16 02:52] VITALS: BP 148/83; O2SAT 93
[2024-06-16 09:11] VITALS: BP 165/80
[2024-06-16 10:43] LABS: URINE APPEARANCE Clear; URINE BILIRRUBIN Negative (NEGATIVE); URINE BLOOD Small; URINE COLOR Yellow; URINE GLUCOSE Negative (NEGATIVE); URINE KETONE Negative (NEGATIVE); URINE LEUKOCYTE Negative; URINE NITRATE Negative; URINE PROTEIN 30 (NEGATIVE); URINE UROBILINOGEN 0.2 E.U./dl
[2024-06-16 10:47] LABS: URINE BACTERIA 20.1 uL (0.0-1933); URINE EPITHELIAL CELLS 12.9 uL (0.0-38.8); URINE RBC 112.2 uL (0.0-20.8); URINE WBC 9.4 uL (0.0-23.2)
[2024-06-16 10:49] LABS: URINE CAST 0.45 uL (0.0-1.40)
[2024-06-16 18:52] VITALS: BP 162/76
[2024-06-17 00:20] VITALS: BP 155/70; O2SAT 98
[2024-06-17 06:07] LABS: HEMATOCRIT 32.1 % (36.0-45.00); HEMOGLOBIN 10.5 g/dL (12.0-15.00); MEAN CELL VOLUME 89.6 fL (80.00-100.00); MEAN CORPUSCULAR HEMOGLOBIN 29.3 pg (27.00-32.0); MEAN CORPUSCULAR HGB CONC 32.7 g/dl (32.0-36.0); PLATELET COUNT 329 K/uL (150-450); RED BLOOD COUNT 3.58 M/uL (4.00-6.00); RED CELL DISTRIBUTION WIDTH 17.3 % (11.5-14.5)
[2024-06-17 06:36] LABS: ALBUMIN 1.9 gm/dL (3.4-5.0); BILIRUBIN TOTAL 0.4 mg/dL (0.3-1.2); C-REACTIVE PROTEIN 3.09 MG/DL (0.00-0.29); CALCIUM 8.8 mg/dL (8.5-10.1); CREATININE SERUM 0.46 mg/dL (0.55-1.02); GFR 128.8; GLOBULINA 4.1 G/DL (2.4-3.5); MAGNESIUM 2.2 mg/dL (1.8-2.4); PHOSPHOROUS 3.3 mg/dL (2.5-4.9); POTASSIUM 4.48 mEq/L (3.5-5.1)
[2024-06-17 06:47] LABS: ERYTHROCYTE SEDIMENTATION RATE 89 mm/hr
[2024-06-17 08:44] VITALS: BP 154/75
[2024-06-17] MEDS ORDERED: SODIUM CHLORIDE 0.45 % 1,000 ML IV SCH (10:00)
[2024-06-17] MEDS ORDERED: LISINOPRIL 10 MG TABLET PO SCH (12:00)
[2024-06-17 19:07] VITALS: BP 160/85; O2SAT 97
[2024-06-18 00:19] VITALS: BP 147/84; O2SAT 98
[2024-06-18 09:18] VITALS: BP 170/90
[2024-06-18] MEDS ORDERED: AMINO ACIDS/PROTEIN HYDROLYS 30 ML BLIST.PACK PO SCH (09:53)
[2024-06-18] MEDS ORDERED: AMLODIPINE BESYLATE 5 MG TABLET PO SCH (17:00)
[2024-06-18 18:56] VITALS: BP 160/84; O2SAT 97
[2024-06-19 00:35] VITALS: BP 172/85; O2SAT 98
[2024-06-19 09:04] VITALS: BP 150/85; O2SAT 96
[2024-06-19] MEDS ORDERED: ARICEPT10 MG PO (12:29)
[2024-06-19] MEDS ORDERED: AMLODIPINE BESYL5 MG PO (12:30)
[2024-06-19] MEDS ORDERED: LISINOPRIL10 MG PO (12:30)
[2024-06-19] MEDS ORDERED: SIMVASTATIN20 MG PO (12:30)
[2024-06-19] MEDS ORDERED: FERROUS SULFAT325 M1 PO (12:30)
[2024-06-19] MEDS ORDERED: PROTONIX40 MG PO (12:31)
[2024-06-19] MEDS ORDERED: CLOPIDOGREL BIS75 MG PO (12:34)
[2024-06-19] MEDS ORDERED: MEMANTINE HCL5 MG PO (12:35)
[2024-06-19] MEDS ORDERED: PROTEINEX-18 LI30 ML PO (12:36)
[2024-06-19] MEDS ORDERED: LISINOPRIL 10 MG TABLET PO SCH (17:00)
== END 2024-06-19 17:31 | disposition home or self-care (01) | DRG 872 ==
LOC: ER 14:27 → SEC-K 18:18 → MEDJ 22:53
PROVIDERS: General Practice; Internal Medicine; Internal Medicine Infectious Disease; ADMIT Internal Medicine; ATTEND Internal Medicine
PROC: BW21ZZZ Computerized Tomography (CT Scan) of Abdomen and Pelvis (ICD-10-PCS; principal; 2024-06-02)
PROC: 02HV33Z Insertion of Infusion Device into Superior Vena Cava, Percutaneous Approach (ICD-10-PCS; 2024-06-03)
PROC: BW40ZZZ Ultrasonography of Abdomen (ICD-10-PCS; 2024-06-05)
PROC: 30233N1 Transfusion of Nonautologous Red Blood Cells into Peripheral Vein, Percutaneous Approach (ICD-10-PCS; 2024-06-05)
PROC: BW40ZZZ Ultrasonography of Abdomen (ICD-10-PCS; 2024-06-11)
DX: A41.9 Sepsis, unspecified organism (principal); N39.0 Urinary tract infection, site not specified; K94.23 Gastrostomy malfunction; B96.1 Klebsiella pneumoniae [K. pneumoniae] as the cause of diseases classified elsewhere; D72.828 Other elevated white blood cell count; L89.152 Pressure ulcer of sacral region, stage 2; L08.89 Other specified local infections of the skin and subcutaneous tissue; B96.5 Pseudomonas (aeruginosa) (mallei) (pseudomallei) as the cause of diseases classified elsewhere; B96.29 Other Escherichia coli [E. coli] as the cause of diseases classified elsewhere; G30.9 Alzheimer's disease, unspecified; F02.80 Dementia in other diseases classified elsewhere, unspecified severity, without behavioral disturbance, psychotic disturbance, mood disturbance, and anxiety; I10 Essential (primary) hypertension; D64.9 Anemia, unspecified; E78.49 Other hyperlipidemia; K80.50 Calculus of bile duct without cholangitis or cholecystitis without obstruction

== ENCOUNTER 2024-07-31 20:13 | Inpatient (IN) | payer OTHER ==
[~2024-07-31] VITALS: Ht 160 cm; Wt 54.4 kg
[~2024-07-31 20:13] MED LIST changes: +AMLODIPINE BESYL5 MG PO; +ARICEPT10 MG PO; +CLOPIDOGREL BIS75 MG PO; +FERROUS SULFAT325 M1 PO; +LISINOPRIL10 MG PO; +MEMANTINE HCL5 MG PO; +SIMVASTATIN20 MG PO
[2024-07-31] MEDS ORDERED: LEVALBUTEROL HCL 1.25 MG/3 ML SOLUTION IH SCH (21:15)
[2024-07-31] MEDS ORDERED: 0.9 % SODIUM CHLORIDE 1,000 ML IV SCH ×2 (21:15)
[2024-07-31] MEDS ORDERED: IPRATROPIUM BROMIDE 0.5 MG/2.5 ML AMPUL.NEB IH SCH ×2 (21:15→22:11)
[2024-07-31] MEDS ORDERED: ONDANSETRON HCL 4 MG in 0.9 % SODIUM CHLORIDE 50 ML IV ONE (21:15)
[2024-07-31] MEDS ORDERED: PIPERACILLIN/TAZOBACTAM SODIUM 3.375 GM in DEXTROSE 5 % IN WATER 100 ML IV ONE (21:15)
[2024-07-31] MEDS ORDERED: FAMOTIDINE/PF 20 MG in 0.9 % SODIUM CHLORIDE 8 ML IV PUSH ONE (21:15)
[2024-07-31] MEDS ORDERED: 0.9 % SODIUM CHLORIDE 1,000 ML IV ONE (21:15)
[2024-07-31] MEDS ORDERED: IPRATROPIUM BROMIDE 0.5 MG/2.5 ML AMPUL.NEB IH ONE ×2 (21:28→23:29)
[2024-07-31] MEDS ORDERED: LEVALBUTEROL HCL 1.25 MG/3 ML SOLUTION IH ONE (21:28)
[2024-07-31 21:32] LABS: HEMATOCRIT 40.6 % (36.0-45.00); MEAN CELL VOLUME 91.7 fL (80.00-100.00); MEAN CORPUSCULAR HEMOGLOBIN 29.4 pg (27.00-32.0); MEAN CORPUSCULAR HGB CONC 32.1 g/dl (32.0-36.0); PLATELET COUNT 333 K/uL (150-450); RED BLOOD COUNT 4.43 M/uL (4.00-6.00); RED CELL DISTRIBUTION WIDTH 16.8 % (11.5-14.5)
[2024-07-31 21:38] LABS: ERYTHROCYTE SEDIMENTATION RATE 116 mm/hr
[2024-07-31] MEDS ORDERED: FAMOTIDINE/PF 20 MG/2 ML VIAL ONE (21:47)
[2024-07-31] MEDS ORDERED: PIPERACILLIN/TAZOBACTAM SODIUM 3.375 GM VIAL IV ONE (21:47)
[2024-07-31] MEDS ORDERED: ONDANSETRON HCL 2 MG/ML VIAL ONE (21:47)
[2024-07-31 21:49] LABS: INR 1.09; PARTIAL THROMBOPLASTIN TIME 31.3 SECONDS (22.0-34.0); PROTHROMBIN TIME 11.8 SECONDS (9.0-11.5)
[2024-07-31 21:55] LABS: ALBUMIN 2.6 gm/dL (3.4-5.0); BILIRUBIN TOTAL 0.71 mg/dL (0.3-1.2); CALCIUM 10.1 mg/dL (8.5-10.1); CREATININE SERUM 1.83 mg/dL (0.55-1.02); GFR 26.17; GLOBULINA 5.7 G/DL (2.4-3.5); POTASSIUM 5.49 mEq/L (3.5-5.1); TOTAL PROTEIN 8.3 gm/dL (6.4-8.2)
[2024-07-31] MEDS ORDERED: ONDANSETRON HCL 4 MG in 0.9 % SODIUM CHLORIDE 50 ML IV PRN (22:15)
[2024-07-31 22:31] LABS: ABG PH 7.482 (7.35-7.45); ABG pCO2 32.6 mmHg (35-45); BASE EXCESS 1.1 mmol/l; BICARBONATE 23.8 mmol/l (23-25); SaO2 95.7 %; Tco2 24.8 mmol/l; allen test SATISFACTORY; o2 40 %; puncture site BRADIAL RIGHT
[2024-07-31 23:32] VITALS: BP 72/56; O2SAT 97
[2024-08-01] VITALS (10 sets, daily range): BP systolic 70–137; BP diastolic 38–75; O2SAT 90–100
[2024-08-01] MEDS ORDERED: PIPERACILLIN/TAZOBACTAM SODIUM 2.25 GM in DEXTROSE 5 % IN WATER 50 ML IV SCH
[2024-08-01 06:51] LABS: PH,URINE >= 9.0 (5.0-8.0); URINE APPEARANCE Turbid; URINE BILIRRUBIN Negative (NEGATIVE); URINE BLOOD Small; URINE COLOR Dark Yellow; URINE KETONE Negative (NEGATIVE); URINE LEUKOCYTE Large; URINE NITRATE Negative
[2024-08-01 06:52] LABS: URINE EPITHELIAL CELLS 12.9 uL (0.0-38.8); URINE RBC 226.7 uL (0.0-20.8)
[2024-08-01 06:59] LABS: CALCIUM 8.3 mg/dL (8.5-10.1); CREATININE SERUM 1.89 mg/dL (0.55-1.02); GFR 25.22; MAGNESIUM 2.1 mg/dL (1.8-2.4); PHOSPHOROUS 3.1 mg/dL (2.5-4.9); POTASSIUM 4.68 mEq/L (3.5-5.1)
[2024-08-01 07:09] LABS: TSH 5.39 uIU/mL (0.358-3.74)
[2024-08-01 07:09] LABS: URINE BACTERIA > 9821.5 uL (0.0-1933); URINE CAST > 21.83 uL (0.0-1.40); URINE CRYSTALS MANY /HPF; URINE GLUCOSE 100 MG/DL (NEGATIVE); URINE PROTEIN 300 (NEGATIVE)
[2024-08-01] MEDS ORDERED: NOREPINEPHRINE BITARTRATE 1 MG/ML AMPUL IV ONE (08:13)
[2024-08-01] MEDS ORDERED: NOREPINEPHRINE BITARTRATE 8 MG in DEXTROSE 5 % IN WATER 250 ML IV SCH (08:30)
[2024-08-01] MEDS ORDERED: SODIUM CHLORIDE 0.45 % 1,000 ML IV SCH (08:30)
[2024-08-01] MEDS ORDERED: GENTAMICIN SULFATE 40 MG/ML VIAL IV ONE (08:30)
[2024-08-01] MEDS ORDERED: MEMANTINE HCL 5 MG TABLET PO SCH (09:00)
[2024-08-01] MEDS ORDERED: ENOXAPARIN SODIUM 30 MG/0.3 ML SYRINGE SUBCUTANEO SCH (09:00)
[2024-08-01] MEDS ORDERED: MEROPENEM 500 MG/VIAL VIAL IV SCH (09:00)
[2024-08-01] MEDS ORDERED: FAMOTIDINE/PF 20 MG in 0.9 % SODIUM CHLORIDE 8 ML IV PUSH SCH (09:00)
[2024-08-01] MEDS ORDERED: PANTOPRAZOLE SODIUM 40 MG/VIAL VIAL IV PUSH SCH (10:45)
[2024-08-01] MEDS ORDERED: BUDESONIDE 0.5 MG/2 ML AMPUL.NEB IH SCH (10:53)
[2024-08-01] MEDS ORDERED: HYDROCORTISONE SODIUM SUCC/PF 100 MG VIAL IV STA (10:54)
[2024-08-01] MEDS ORDERED: RINGERS SOLUTION,LACTATED 1,000 ML IV ONE (11:00)
[2024-08-01] MEDS ORDERED: VASOPRESSIN IV SCH (11:00)
[2024-08-01] MEDS ORDERED: SODIUM CHLORIDE 0.9% IV SCH (11:00)
[2024-08-01] MEDS ORDERED: HYDROCORTISONE SODIUM SUCC/PF 100 MG VIAL ONE (11:26)
[2024-08-01 11:37] LABS: ABG PH 7.464 (7.35-7.45); ABG PO2 66.4 mmHg (80-100); ABG pCO2 31.4 mmHg (35-45); BASE EXCESS -0.7 mmol/l; allen test SATISFACTORY; o2 32 %; puncture site RADIAL LEFT
[2024-08-01 12:14] LABS: ALBUMIN 1.8 gm/dL (3.4-5.0); BILIRUBIN TOTAL 0.71 mg/dL (0.3-1.2); BILIRUBIN,CONJUGATED 0.37 mg/dL (0.0-0.2); BILIRUBIN,UNCONJUGATED 0.34 mg/dL (0.0-0.6); TOTAL PROTEIN 6.1 gm/dL (6.4-8.2)
[2024-08-01] MEDS ORDERED: LEVOTHYROXINE SODIUM 100MCG/ML REDILUIDO IV SCH (17:00)
[2024-08-01] MEDS ORDERED: DONEPEZIL HCL 10 MG TABLET PO SCH (17:00)
[2024-08-01] MEDS ORDERED: HYDROCORTISONE SODIUM SUCC/PF 50 MG/ML ML IV SCH (18:00)
[2024-08-02 01:21] VITALS: BP 118/69; O2SAT 95
[2024-08-02 06:44] LABS: MEAN CELL VOLUME 90.5 fL (80.00-100.00); MEAN CORPUSCULAR HEMOGLOBIN 29.9 pg (27.00-32.0); MEAN CORPUSCULAR HGB CONC 33.1 g/dl (32.0-36.0); PLATELET COUNT 184 K/uL (150-450); RED BLOOD COUNT 3.31 M/uL (4.00-6.00); RED CELL DISTRIBUTION WIDTH 17.1 % (11.5-14.5)
[2024-08-02 07:44] LABS: BILIRUBIN TOTAL 0.59 mg/dL (0.3-1.2); CALCIUM 8.3 mg/dL (8.5-10.1); CREATININE SERUM 1.62 mg/dL (0.55-1.02); GFR 30.13; MAGNESIUM 2.2 mg/dL (1.8-2.4); PHOSPHOROUS 3.9 mg/dL (2.5-4.9); POTASSIUM 4.35 mEq/L (3.5-5.1)
[2024-08-02 08:42] LABS: C-REACTIVE PROTEIN 35.6 MG/DL (0.00-0.29)
[2024-08-02 09:06] VITALS: BP 129/78; O2SAT 97
[2024-08-02 09:24] LABS: HEMOGLOBIN 9.9 g/dL (12.0-15.00)
[2024-08-02 10:00] LABS: PH,URINE 6.5 (5.0-8.0); URINE APPEARANCE Turbid; URINE BILIRRUBIN Negative (NEGATIVE); URINE BLOOD Large; URINE COLOR Yellow; URINE GLUCOSE Negative (NEGATIVE); URINE KETONE Negative (NEGATIVE); URINE LEUKOCYTE Large; URINE NITRATE Negative
[2024-08-02 10:57] LABS: URINE BACTERIA > 9821.5 uL (0.0-1933); URINE CAST > 21.83 uL (0.0-1.40); URINE PROTEIN 100 (NEGATIVE); URINE WBC > 5548.3 uL (0.0-23.2)
[2024-08-02 11:00] LABS: URINE YEAST NEGATIVE /hpf
[2024-08-02 18:53] VITALS: BP 179/96
[2024-08-03 02:31] VITALS: BP 121/63; O2SAT 99
[2024-08-03 07:53] LABS: HEMATOCRIT 31.3 % (36.0-45.00); HEMOGLOBIN 10.1 g/dL (12.0-15.00); MEAN CELL VOLUME 90.8 fL (80.00-100.00); MEAN CORPUSCULAR HEMOGLOBIN 29.3 pg (27.00-32.0); MEAN CORPUSCULAR HGB CONC 32.3 g/dl (32.0-36.0); PLATELET COUNT 192 K/uL (150-450); RED BLOOD COUNT 3.45 M/uL (4.00-6.00); RED CELL DISTRIBUTION WIDTH 16.4 % (11.5-14.5)
[2024-08-03 08:33] LABS: CALCIUM 8.5 mg/dL (8.5-10.1); CREATININE SERUM 1.1 mg/dL (0.55-1.02); GFR 47.09; POTASSIUM 3.91 mEq/L (3.5-5.1)
[2024-08-03 09:58] VITALS: BP 105/72; O2SAT 99
[2024-08-03] MEDS ORDERED: DEXTROSE 5 %-0.45 % SOD CHLORD 1,000 ML IV SCH (11:30)
[2024-08-03 17:01] VITALS: BP 180/94; O2SAT 96
[2024-08-04] MEDS ORDERED: SODIUM CL 0.9% 50 ML IV.SOLN IV ONE (01:23)
[2024-08-04 06:36] LABS: HEMATOCRIT 30.1 % (36.0-45.00); HEMOGLOBIN 9.9 g/dL (12.0-15.00); MEAN CORPUSCULAR HGB CONC 32.9 g/dl (32.0-36.0); PLATELET COUNT 186 K/uL (150-450); RED BLOOD COUNT 3.31 M/uL (4.00-6.00); RED CELL DISTRIBUTION WIDTH 16.7 % (11.5-14.5)
[2024-08-04 07:33] LABS: ALBUMIN 1.9 gm/dL (3.4-5.0); CALCIUM 8.4 mg/dL (8.5-10.1); CREATININE SERUM 1.04 mg/dL (0.55-1.02); GFR 50.24; POTASSIUM 3.49 mEq/L (3.5-5.1)
[2024-08-04 07:54] LABS: PHOSPHOROUS 1.8 mg/dL (2.5-4.9)
[2024-08-05 06:09] LABS: HEMATOCRIT 32.9 % (36.0-45.00); HEMOGLOBIN 10.7 g/dL (12.0-15.00); MEAN CELL VOLUME 90.5 fL (80.00-100.00); MEAN CORPUSCULAR HEMOGLOBIN 29.5 pg (27.00-32.0); MEAN CORPUSCULAR HGB CONC 32.5 g/dl (32.0-36.0); PLATELET COUNT 162 K/uL (150-450); RED BLOOD COUNT 3.63 M/uL (4.00-6.00); RED CELL DISTRIBUTION WIDTH 16.4 % (11.5-14.5)
[2024-08-05 07:03] LABS: BILIRUBIN TOTAL 0.53 mg/dL (0.3-1.2); CALCIUM 8.1 mg/dL (8.5-10.1); CREATININE SERUM 0.79 mg/dL (0.55-1.02); PHOSPHOROUS 2.5 mg/dL (2.5-4.9); POTASSIUM 3.37 mEq/L (3.5-5.1)
[2024-08-05 07:19] LABS: C-REACTIVE PROTEIN 5.22 MG/DL (0.00-0.29)
[2024-08-05] MEDS ORDERED: CEFTRIAXONE SODIUM 2,000 MG VIAL IV SCH (09:44)
[2024-08-05] MEDS ORDERED: AMINO ACIDS/PROTEIN HYDROLYS 30 ML BLIST.PACK NGT SCH (17:00)
[2024-08-05 17:42] VITALS: BP 160/85; O2SAT 100
[2024-08-06 01:02] VITALS: BP 155/77; O2SAT 92
[2024-08-06 05:26] LABS: URINE APPEARANCE Clear; URINE BILIRRUBIN Negative (NEGATIVE); URINE BLOOD Moderate; URINE COLOR Yellow; URINE KETONE Negative (NEGATIVE); URINE LEUKOCYTE Small; URINE NITRATE Negative; URINE PROTEIN 30 (NEGATIVE); URINE UROBILINOGEN 0.2 E.U./dl
[2024-08-06 05:29] LABS: URINE BACTERIA 187.2 uL (0.0-1933); URINE CAST 4.56 uL (0.0-1.40); URINE EPITHELIAL CELLS 47.4 uL (0.0-38.8); URINE RBC 203.5 uL (0.0-20.8); URINE WBC 484.5 uL (0.0-23.2)
[2024-08-06 06:22] LABS: URINE GLUCOSE >=1000 MG/DL (NEGATIVE)
[2024-08-06 06:23] LABS: URINE MUCUS MODERATE
[2024-08-06 08:49] VITALS: BP 146/75; O2SAT 97
[2024-08-06 18:02] VITALS: BP 160/80; O2SAT 96
[2024-08-07 00:35] VITALS: BP 148/75; O2SAT 98
[2024-08-07 09:25] VITALS: BP 155/65; O2SAT 98
[2024-08-07 17:00] VITALS: O2SAT 92
[2024-08-07 17:22] VITALS: BP 129/71; O2SAT 99
[2024-08-08 00:37] VITALS: BP 146/80; O2SAT 98
[2024-08-08 08:28] LABS: HEMATOCRIT 29.8 % (36.0-45.00); HEMOGLOBIN 9.9 g/dL (12.0-15.00); MEAN CELL VOLUME 90.1 fL (80.00-100.00); MEAN CORPUSCULAR HEMOGLOBIN 29.8 pg (27.00-32.0); MEAN CORPUSCULAR HGB CONC 33.1 g/dl (32.0-36.0); PLATELET COUNT 136 K/uL (150-450); RED BLOOD COUNT 3.31 M/uL (4.00-6.00); RED CELL DISTRIBUTION WIDTH 15.7 % (11.5-14.5)
[2024-08-08 09:06] VITALS: BP 142/70; O2SAT 97
[2024-08-08 09:08] LABS: ALBUMIN 1.8 gm/dL (3.4-5.0); BILIRUBIN TOTAL 0.53 mg/dL (0.3-1.2); CALCIUM 7.7 mg/dL (8.5-10.1); CREATININE SERUM 0.47 mg/dL (0.55-1.02); GFR 125.64; GLOBULINA 3.3 G/DL (2.4-3.5); TOTAL PROTEIN 5.1 gm/dL (6.4-8.2)
[2024-08-08 09:21] LABS: POTASSIUM 2.53 mEq/L (3.5-5.1)
[2024-08-08] MEDS ORDERED: POTASSIUM CHLORIDE IN WATER 40 MEQ/100 ML PIGGYBAG IV SCH (09:42)
[2024-08-08 17:24] VITALS: BP 174/79; O2SAT 97
[2024-08-09 02:05] VITALS: BP 140/80; O2SAT 97
[2024-08-09 07:41] LABS: CALCIUM 8.4 mg/dL (8.5-10.1); CREATININE SERUM 0.47 mg/dL (0.55-1.02); GFR 125.64; MAGNESIUM 1.5 mg/dL (1.8-2.4); PHOSPHOROUS 2.5 mg/dL (2.5-4.9); POTASSIUM 3.94 mEq/L (3.5-5.1)
[2024-08-09] MEDS ORDERED: CEFTRIAXONE SODIUM 2,000 MG VIAL IV SCH (09:00)
[2024-08-09] MEDS ORDERED: FAMOTIDINE/PF 20 MG in 0.9 % SODIUM CHLORIDE 8 ML IV PUSH SCH (09:00)
[2024-08-09 10:30] VITALS: BP 170/92; O2SAT 100
[2024-08-09 17:14] VITALS: BP 127/82; O2SAT 98
[2024-08-09] MEDS ORDERED: MAGNESIUM SULFATE 1,000 MG in 0.9 % SODIUM CHLORIDE 50 ML IV ONE (18:15)
[2024-08-10 01:01] VITALS: BP 107/50; O2SAT 100
[2024-08-10 07:54] LABS: PH,URINE 5.5 (5.0-8.0); URINE APPEARANCE Cloudy; URINE BILIRRUBIN Negative (NEGATIVE); URINE BLOOD Large; URINE COLOR Dark Yellow; URINE GLUCOSE Negative (NEGATIVE); URINE KETONE Negative (NEGATIVE); URINE LEUKOCYTE Moderate; URINE NITRATE Negative
[2024-08-10 07:56] LABS: URINE BACTERIA 157.8 uL (0.0-1933); URINE CAST 2.79 uL (0.0-1.40); URINE EPITHELIAL CELLS 23.5 uL (0.0-38.8); URINE RBC 1152.8 uL (0.0-20.8); URINE WBC 1597.9 uL (0.0-23.2)
[2024-08-10 08:00] VITALS: BP 93/53; O2SAT 99
[2024-08-10 08:35] LABS: ALBUMIN 1.7 gm/dL (3.4-5.0); CALCIUM 7.6 mg/dL (8.5-10.1); CREATININE SERUM 0.43 mg/dL (0.55-1.02); GFR 139.22; MAGNESIUM 1.6 mg/dL (1.8-2.4); PHOSPHOROUS 2.6 mg/dL (2.5-4.9)
[2024-08-10 08:53] LABS: URINE PROTEIN 100 (NEGATIVE)
[2024-08-10 09:23] LABS: POTASSIUM 2.95 mEq/L (3.5-5.1)
[2024-08-10] MEDS ORDERED: POTASSIUM CHLORIDE IN WATER 40 MEQ/100 ML PIGGYBAG IV NR (11:15)
[2024-08-10 17:23] VITALS: BP 94/58; O2SAT 98
[2024-08-11 02:48] VITALS: BP 145/62; O2SAT 95
[2024-08-11 07:42] LABS: ALBUMIN 1.6 gm/dL (3.4-5.0); CALCIUM 7.9 mg/dL (8.5-10.1); CREATININE SERUM 0.38 mg/dL (0.55-1.02); GFR 160.57; MAGNESIUM 1.6 mg/dL (1.8-2.4); PHOSPHOROUS 2.5 mg/dL (2.5-4.9); POTASSIUM 3.07 mEq/L (3.5-5.1)
[2024-08-11 08:53] VITALS: BP 130/70; O2SAT 95
[2024-08-11 15:45] VITALS: BP 178/80; O2SAT 99
[2024-08-11] MEDS ORDERED: LEVOTHYROXINE SODIUM 100 MCG/VIAL VIAL IV SCH (17:00)
[2024-08-11] MEDS ORDERED: PROMETHAZINE HCL 25 MG/ML AMPUL ONE (18:07)
[2024-08-11] MEDS ORDERED: PROMETHAZINE HCL 25 MG/ML AMPUL IM ONE (18:15)
[2024-08-12 02:52] VITALS: BP 147/66; O2SAT 99
[2024-08-12 06:45] LABS: ALBUMIN 1.8 gm/dL (3.4-5.0); CALCIUM 8.1 mg/dL (8.5-10.1); CREATININE SERUM 0.49 mg/dL (0.55-1.02); GFR 119.74; MAGNESIUM 1.5 mg/dL (1.8-2.4); PHOSPHOROUS 2.7 mg/dL (2.5-4.9); POTASSIUM 3.17 mEq/L (3.5-5.1)
[2024-08-12 06:49] LABS: HEMATOCRIT 27.9 % (36.0-45.00); HEMOGLOBIN 9.3 g/dL (12.0-15.00); MEAN CELL VOLUME 89.8 fL (80.00-100.00); MEAN CORPUSCULAR HGB CONC 33.4 g/dl (32.0-36.0); PLATELET COUNT 356 K/uL (150-450); RED BLOOD COUNT 3.11 M/uL (4.00-6.00); RED CELL DISTRIBUTION WIDTH 16.3 % (11.5-14.5)
[2024-08-12] MEDS ORDERED: DEXTROSE 5 % IN WATER 1,000 ML IV SCH (08:00)
[2024-08-12] MEDS ORDERED: POTASSIUM CHLORIDE IN WATER 100 ML IV NR (09:01)
[2024-08-12] MEDS ORDERED: MAGNESIUM SULFATE IN WATER 2 GM/50 ML PIGGYBAG IV NR (09:02)
[2024-08-12 10:17] VITALS: BP 135/63
[2024-08-12 14:49] LABS: URINE APPEARANCE Cloudy; URINE BILIRRUBIN Negative (NEGATIVE); URINE BLOOD Small; URINE COLOR Yellow; URINE GLUCOSE Negative (NEGATIVE); URINE KETONE Negative (NEGATIVE); URINE LEUKOCYTE Large; URINE NITRATE Negative; URINE PROTEIN 30 (NEGATIVE)
[2024-08-12 14:50] LABS: URINE BACTERIA 308.4 uL (0.0-1933); URINE CAST 3.53 uL (0.0-1.40); URINE EPITHELIAL CELLS 66.8 uL (0.0-38.8); URINE RBC 82.9 uL (0.0-20.8); URINE WBC 1260.6 uL (0.0-23.2)
[2024-08-12 15:05] LABS: URINE MUCUS SCANT
[2024-08-12 15:07] LABS: URINE YEAST MODERATE /hpf
[2024-08-12] MEDS ORDERED: LEVOTHYROXINE SODIUM 100MCG/ML REDILUIDO IV SCH (17:00)
[2024-08-12 18:33] VITALS: BP 100/73
[2024-08-13 02:31] VITALS: BP 104/53; O2SAT 100
[2024-08-13 08:41] LABS: MEAN CELL VOLUME 89.3 fL (80.00-100.00); MEAN CORPUSCULAR HGB CONC 33.7 g/dl (32.0-36.0); PLATELET COUNT 288 K/uL (150-450); RED BLOOD COUNT 2.45 M/uL (4.00-6.00); RED CELL DISTRIBUTION WIDTH 16.2 % (11.5-14.5)
[2024-08-13 09:19] LABS: HEMATOCRIT 21.8 % (36.0-45.00); HEMOGLOBIN 7.4 g/dL (12.0-15.00); MEAN CORPUSCULAR HEMOGLOBIN 30.2 pg (27.00-32.0)
[2024-08-13 09:25] LABS: ALBUMIN 1.5 gm/dL (3.4-5.0); BILIRUBIN TOTAL 0.41 mg/dL (0.3-1.2); CALCIUM 7.4 mg/dL (8.5-10.1); CREATININE SERUM 0.41 mg/dL (0.55-1.02); GFR 147.09; GLOBULINA 2.9 G/DL (2.4-3.5); MAGNESIUM 1.7 mg/dL (1.8-2.4); PHOSPHOROUS 2.1 mg/dL (2.5-4.9); POTASSIUM 3.53 mEq/L (3.5-5.1); TOTAL PROTEIN 4.4 gm/dL (6.4-8.2)
[2024-08-13 09:28] VITALS: BP 120/68; O2SAT 100
[2024-08-13 09:34] LABS: C-REACTIVE PROTEIN 9.37 MG/DL (0.00-0.29)
[2024-08-13 13:33] LABS: PLATELET ESTIMATE NORMAL (NORMAL)
[2024-08-13 19:00] VITALS: BP 122/68
[2024-08-13 20:04] LABS: ALBUMIN 1.7 gm/dL (3.4-5.0); BILIRUBIN TOTAL 0.36 mg/dL (0.3-1.2); BILIRUBIN,CONJUGATED 0.14 mg/dL (0.0-0.2); BILIRUBIN,UNCONJUGATED 0.22 mg/dL (0.0-0.6); TOTAL PROTEIN 5.2 gm/dL (6.4-8.2)
[2024-08-13] MEDS ORDERED: LACTULOSE 20 G/30 ML BLIST.PACK NGT SCH (21:00)
[2024-08-14 01:56] VITALS: BP 99/75
[2024-08-14] MEDS ORDERED: MEPERIDINE HCL 25 MG/ML AMPUL IV STA (08:28)
[2024-08-14 08:39] VITALS: BP 132/77
[2024-08-14] MEDS ORDERED: MAGNESIUM SULFATE IN WATER 50 ML IV ONE (11:45)
[2024-08-14] MEDS ORDERED: MEROPENEM 500 MG/VIAL VIAL IV SCH (14:00)
[2024-08-14] MEDS ORDERED: MEPERIDINE HCL 25 MG/ML AMPUL IV SCH (17:00)
[2024-08-14 19:28] VITALS: BP 121/58; O2SAT 98
[2024-08-14 20:15] LABS: ob POSITIVE (NEGATIVE)
[2024-08-14 20:53] LABS: HEMATOCRIT 35.9 % (36.0-45.00); HEMOGLOBIN 12.1 g/dL (12.0-15.00); MEAN CELL VOLUME 86.4 fL (80.00-100.00); MEAN CORPUSCULAR HEMOGLOBIN 29.2 pg (27.00-32.0); MEAN CORPUSCULAR HGB CONC 33.8 g/dl (32.0-36.0); PLATELET COUNT 323 K/uL (150-450); RED BLOOD COUNT 4.15 M/uL (4.00-6.00); RED CELL DISTRIBUTION WIDTH 16.4 % (11.5-14.5)
[2024-08-15 00:47] VITALS: BP 152/71; O2SAT 99
[2024-08-15 07:03] LABS: CALCIUM 7.9 mg/dL (8.5-10.1); CREATININE SERUM 0.42 mg/dL (0.55-1.02); GFR 143.05; POTASSIUM 3.23 mEq/L (3.5-5.1)
[2024-08-15] MEDS ORDERED: POTASSIUM CHLORIDE IN WATER 100 ML IV NR (07:39)
[2024-08-15] MEDS ORDERED: MAGNESIUM SULFATE IN WATER 2 GM/50 ML PIGGYBAG IV NR (07:45)
[2024-08-15 08:37] VITALS: BP 167/85
[2024-08-15] MEDS ORDERED: FLUCONAZOLE 200 MG TABLET PO SCH (09:00)
[2024-08-15 19:00] VITALS: BP 118/86
[2024-08-15] MEDS ORDERED: POTASSIUM CHLORIDE IN WATER 40 MEQ/100 ML PIGGYBAG IV ONE (21:45)
[2024-08-16 01:36] VITALS: BP 149/80; O2SAT 100
[2024-08-16 08:08] LABS: HEMOGLOBIN 12.3 g/dL (12.0-15.00); MEAN CELL VOLUME 86.5 fL (80.00-100.00); MEAN CORPUSCULAR HEMOGLOBIN 29.6 pg (27.00-32.0); MEAN CORPUSCULAR HGB CONC 34.2 g/dl (32.0-36.0); PLATELET COUNT 322 K/uL (150-450); RED BLOOD COUNT 4.16 M/uL (4.00-6.00); RED CELL DISTRIBUTION WIDTH 16.2 % (11.5-14.5)
[2024-08-16 08:32] LABS: ALBUMIN 1.8 gm/dL (3.4-5.0); BILIRUBIN TOTAL 0.81 mg/dL (0.3-1.2); CALCIUM 8.1 mg/dL (8.5-10.1); CREATININE SERUM 0.44 mg/dL (0.55-1.02); GFR 135.58; GLOBULINA 3.8 G/DL (2.4-3.5); POTASSIUM 4.11 mEq/L (3.5-5.1); TOTAL PROTEIN 5.6 gm/dL (6.4-8.2)
[2024-08-16 10:03] VITALS: BP 159/69; O2SAT 97
[2024-08-16 17:52] VITALS: BP 115/77; O2SAT 100
[2024-08-17 01:06] VITALS: BP 130/69; O2SAT 98
[2024-08-17 08:03] LABS: PH,URINE 7.5 (5.0-8.0); URINE APPEARANCE Cloudy; URINE BILIRRUBIN Negative (NEGATIVE); URINE BLOOD Negative; URINE COLOR Yellow; URINE GLUCOSE Negative (NEGATIVE); URINE KETONE Negative (NEGATIVE); URINE LEUKOCYTE Large; URINE NITRATE Negative; URINE PROTEIN Negative (NEGATIVE)
[2024-08-17 08:07] LABS: URINE BACTERIA 603.4 uL (0.0-1933); URINE EPITHELIAL CELLS 6.9 uL (0.0-38.8); URINE RBC 25.6 uL (0.0-20.8); URINE WBC 31.6 uL (0.0-23.2)
[2024-08-17 09:40] LABS: URINE YEAST MODERATE /hpf
[2024-08-17 10:09] VITALS: BP 151/89; O2SAT 99
[2024-08-17 18:14] VITALS: BP 140/85; O2SAT 100
[2024-08-18 00:35] VITALS: BP 140/60; O2SAT 98
[2024-08-18 08:55] VITALS: BP 135/67; O2SAT 98
[2024-08-18 18:04] VITALS: BP 148/78
[2024-08-19 01:32] VITALS: BP 92/50; O2SAT 98
[2024-08-19 08:41] VITALS: BP 134/58
[2024-08-19] MEDS ORDERED: FLUCONAZOLE IN NACL,ISO-OSM 200 MG/100 ML PIGGYBAG IV NR (15:45)
[2024-08-19 16:28] VITALS: BP 133/70
[2024-08-20 01:40] VITALS: BP 96/41; O2SAT 96
[2024-08-20 02:33] VITALS: BP 97/54
[2024-08-20 09:31] VITALS: BP 139/79; O2SAT 97
[2024-08-20] MEDS ORDERED: FLUCONAZOLE IN NACL,ISO-OSM 2 MG/ML ML IV SCH (12:00)
[2024-08-20 14:32] LABS: HEMOGLOBIN 12.3 g/dL (12.0-15.00); MEAN CORPUSCULAR HEMOGLOBIN 29.5 pg (27.00-32.0); MEAN CORPUSCULAR HGB CONC 33.1 g/dl (32.0-36.0); PLATELET COUNT 221 K/uL (150-450); RED BLOOD COUNT 4.16 M/uL (4.00-6.00); RED CELL DISTRIBUTION WIDTH 15.7 % (11.5-14.5)
[2024-08-20 14:55] LABS: ALBUMIN 1.7 gm/dL (3.4-5.0); BILIRUBIN TOTAL 0.73 mg/dL (0.3-1.2); CALCIUM 8.4 mg/dL (8.5-10.1); CREATININE SERUM 0.36 mg/dL (0.55-1.02); GFR 170.91; GLOBULINA 3.9 G/DL (2.4-3.5); POTASSIUM 3.53 mEq/L (3.5-5.1); TOTAL PROTEIN 5.6 gm/dL (6.4-8.2)
[2024-08-20 17:24] LABS: ABG PH 7.483 (7.35-7.45); ABG pCO2 42.4 mmHg (35-45); BASE EXCESS 6.9 mmol/l; BICARBONATE 31.1 mmol/l (23-25); SaO2 97.1 %; Tco2 32.4 mmol/l; allen test SATISFACTORY; o2 21 %; puncture site RADIAL RIGHT
[2024-08-20 17:32] VITALS: BP 174/83
[2024-08-21 03:50] VITALS: BP 115/69
[2024-08-21 09:28] VITALS: BP 145/73
[2024-08-21 18:08] VITALS: BP 198/97
== END 2024-08-21 20:25 | disposition home or self-care (01) | DRG 853 ==
LOC: ER 20:13 → ICU-2 23:14 → MEDJ 23:14
PROVIDERS: General Practice; Internal Medicine; Internal Medicine Infectious Disease; Internal Medicine Nephrology; ADMIT Internal Medicine; ATTEND Internal Medicine
PROC: BB24ZZZ Computerized Tomography (CT Scan) of Bilateral Lungs (ICD-10-PCS; 2024-07-31)
PROC: B020ZZZ Computerized Tomography (CT Scan) of Brain (ICD-10-PCS; 2024-07-31)
PROC: BW40ZZZ Ultrasonography of Abdomen (ICD-10-PCS; 2024-08-01)
PROC: BW4GZZZ Ultrasonography of Pelvic Region (ICD-10-PCS; 2024-08-01)
PROC: 02HV33Z Insertion of Infusion Device into Superior Vena Cava, Percutaneous Approach (ICD-10-PCS; 2024-08-01)
PROC: 3E0F7GC Introduction of Other Therapeutic Substance into Respiratory Tract, Via Natural or Artificial Opening (ICD-10-PCS; 2024-08-01)
PROC: 4A12X4Z Monitoring of Cardiac Electrical Activity, External Approach (ICD-10-PCS; 2024-08-01)
PROC: B246ZZZ Ultrasonography of Right and Left Heart (ICD-10-PCS; 2024-08-04)
PROC: B54MZZZ Ultrasonography of Right Upper Extremity Veins (ICD-10-PCS; 2024-08-10)
PROC: 0DP63UZ Removal of Feeding Device from Stomach, Percutaneous Approach (ICD-10-PCS; principal; 2024-08-12)
PROC: 0DH63UZ Insertion of Feeding Device into Stomach, Percutaneous Approach (ICD-10-PCS; 2024-08-12)
PROC: 30233N1 Transfusion of Nonautologous Red Blood Cells into Peripheral Vein, Percutaneous Approach (ICD-10-PCS; 2024-08-14)
PROC: BW40ZZZ Ultrasonography of Abdomen (ICD-10-PCS; 2024-08-15)
DX: A41.59 Other Gram-negative sepsis (principal); J69.0 Pneumonitis due to inhalation of food and vomit; R65.21 Severe sepsis with septic shock; B37.49 Other urogenital candidiasis; K94.23 Gastrostomy malfunction; E87.1 Hypo-osmolality and hyponatremia; N17.9 Acute kidney failure, unspecified; D64.89 Other specified anemias; E87.6 Hypokalemia; R13.19 Other dysphagia; I12.9 Hypertensive chronic kidney disease with stage 1 through stage 4 chronic kidney disease, or unspecified chronic kidney disease; N18.9 Chronic kidney disease, unspecified; Z74.01 Bed confinement status; G30.8 Other Alzheimer's disease; F02.80 Dementia in other diseases classified elsewhere, unspecified severity, without behavioral disturbance, psychotic disturbance, mood disturbance, and anxiety

== ENCOUNTER 2024-09-11 14:06 | Inpatient (IN) | payer OTHER ==
[~2024-09-11] VITALS: Ht 152.4 cm; Wt 45.4 kg
--- NOTE | 2024-09-11 14:30 | NUR ---
SE RECIBE PACIENTE EN AMBULANCIA JUNTO A PARAMEDICOS Y FAMILIAR. FAMILIAR DE PACIENTE REFIERE TRAER A PACIENTE POR ULCERA SACRAL INFECTADA, SEDIMENTACION EN CATETER [place]. SE MIDEN S/V Y SE UBICA.
[2024-09-11] MEDS ORDERED: 0.9 % SODIUM CHLORIDE 1,000 ML IV STA (16:02)
--- NOTE | 2024-09-11 17:28 | NUR ---
SE RECIBE PTE ALERTA ORIENTADA X3.SE NATHALIE MUESTRAS DE LABORATORIO USANDO MEDIDAS ASEPTICAS.SE ORIENTA PTE SOBRE OBJETIVO DE TX MEDICO.PTE MANEJADA POR DENIS DE LA FUENTE.
[2024-09-11 18:07] LABS: INR 1.1; PARTIAL THROMBOPLASTIN TIME 30.8 SECONDS (22.0-34.0); PROTHROMBIN TIME 11.9 SECONDS (9.0-11.5)
[2024-09-11 18:12] LABS: ALBUMIN 2.2 gm/dL (3.4-5.0); BILIRUBIN TOTAL 0.73 mg/dL (0.3-1.2); CALCIUM 9.7 mg/dL (8.5-10.1); CREATININE SERUM 0.6 mg/dL (0.55-1.02); GFR 94.56; GLOBULINA 5.5 G/DL (2.4-3.5); POTASSIUM 3.65 mEq/L (3.5-5.1); TOTAL PROTEIN 7.7 gm/dL (6.4-8.2)
[2024-09-11 19:03] LABS: HEMATOCRIT 36.4 % (36.0-45.00); HEMOGLOBIN 11.7 g/dL (12.0-15.00); MEAN CORPUSCULAR HEMOGLOBIN 28.9 pg (27.00-32.0); MEAN CORPUSCULAR HGB CONC 32.2 g/dl (32.0-36.0); PLATELET COUNT 477 K/uL (150-450); RED BLOOD COUNT 4.05 M/uL (4.00-6.00); RED CELL DISTRIBUTION WIDTH 15.1 % (11.5-14.5)
[2024-09-11 19:09] LABS: ERYTHROCYTE SEDIMENTATION RATE > 130 mm/hr
[2024-09-11] MEDS ORDERED: ONDANSETRON HCL 4 MG in 0.9 % SODIUM CHLORIDE 50 ML IV PRN (23:30)
[2024-09-11] MEDS ORDERED: ACETAMINOPHEN 500 MG GEL..CAP PO PRN (23:30)
[2024-09-11] MEDS ORDERED: 0.9 % SODIUM CHLORIDE 1,000 ML IV SCH (23:30)
[2024-09-11 23:33] LABS: PH,URINE 5.5 (5.0-8.0); URINE APPEARANCE Turbid; URINE BILIRRUBIN Negative (NEGATIVE); URINE BLOOD Large; URINE COLOR Dark Yellow; URINE GLUCOSE Negative (NEGATIVE); URINE KETONE 15 (NEGATIVE); URINE LEUKOCYTE Large; URINE NITRATE Negative; URINE PROTEIN 30 (NEGATIVE)
[2024-09-11 23:39] LABS: URINE BACTERIA > 9821.5 uL (0.0-1933); URINE CAST > 21.83 uL (0.0-1.40); URINE EPITHELIAL CELLS 48.4 uL (0.0-38.8); URINE RBC 232.8 uL (0.0-20.8)
[2024-09-12] MEDS ORDERED: PIPERACILLIN/TAZOBACTAM SODIUM 3.375 GM in DEXTROSE 5 % IN WATER 100 ML IV SCH
[2024-09-12 06:00] VITALS: BP 116/67
[2024-09-12] MEDS ORDERED: VITAMIN B COMPLEX/LYSINE 1 ML ML PO SCH (09:00)
[2024-09-12] MEDS ORDERED: FAMOTIDINE/PF 20 MG in 0.9 % SODIUM CHLORIDE 8 ML IV PUSH SCH (09:00)
[2024-09-12] MEDS ORDERED: VITAMIN B COMPLEX/LYSINE 15 ML BLIST.PACK PO SCH (09:00)
[2024-09-12 12:31] VITALS: BP 155/87
[2024-09-12 16:50] VITALS: BP 150/65
[2024-09-12] MEDS ORDERED: DONEPEZIL HCL 10 MG TABLET PO SCH (17:00)
[2024-09-12] MEDS ORDERED: VANCOMYCIN HCL 500 MG VIAL IV SCH (17:00)
[2024-09-12] MEDS ORDERED: SIMVASTATIN 20 MG TABLET PO SCH (17:00)
[2024-09-12] MEDS ORDERED: MEROPENEM 500 MG/VIAL VIAL IV SCH (18:00)
[2024-09-13 00:54] VITALS: BP 169/85
[2024-09-13 07:41] LABS: URINE APPEARANCE Cloudy; URINE BILIRRUBIN Small (NEGATIVE); URINE BLOOD Negative; URINE COLOR Dark Yellow; URINE GLUCOSE Negative (NEGATIVE); URINE KETONE 15 (NEGATIVE); URINE LEUKOCYTE Moderate; URINE NITRATE Negative; URINE PROTEIN 30 (NEGATIVE)
[2024-09-13 07:43] LABS: URINE BACTERIA 887.3 uL (0.0-1933); URINE CAST 3.38 uL (0.0-1.40); URINE EPITHELIAL CELLS 72.5 uL (0.0-38.8); URINE WBC 774.5 uL (0.0-23.2)
[2024-09-13 07:53] LABS: ALBUMIN 2.3 gm/dL (3.4-5.0); BILIRUBIN TOTAL 0.72 mg/dL (0.3-1.2); CREATININE SERUM 0.67 mg/dL (0.55-1.02); GFR 83.26; MAGNESIUM 2.1 mg/dL (1.8-2.4); PHOSPHOROUS 3.7 mg/dL (2.5-4.9); POTASSIUM 4.45 mEq/L (3.5-5.1); TOTAL PROTEIN 7.3 gm/dL (6.4-8.2)
[2024-09-13 07:58] LABS: HEMOGLOBIN 11.4 g/dL (12.0-15.00); MEAN CELL VOLUME 89.6 fL (80.00-100.00); MEAN CORPUSCULAR HEMOGLOBIN 29.2 pg (27.00-32.0); MEAN CORPUSCULAR HGB CONC 32.6 g/dl (32.0-36.0); PLATELET COUNT 465 K/uL (150-450); RED CELL DISTRIBUTION WIDTH 15.7 % (11.5-14.5)
[2024-09-13 08:23] LABS: C-REACTIVE PROTEIN 5.65 MG/DL (0.00-0.29)
[2024-09-13 08:58] VITALS: BP 132/68; O2SAT 97
[2024-09-13 08:59] LABS: URINE YEAST MODERATE /hpf
[2024-09-13 17:30] VITALS: BP 132/75
[2024-09-14 01:47] VITALS: BP 163/80
[2024-09-14 08:16] LABS: ALBUMIN 2.2 gm/dL (3.4-5.0); CALCIUM 9.5 mg/dL (8.5-10.1); CREATININE SERUM 0.64 mg/dL (0.55-1.02); GFR 87.78; POTASSIUM 3.64 mEq/L (3.5-5.1)
[2024-09-14 08:36] LABS: PHOSPHOROUS 1.9 mg/dL (2.5-4.9)
[2024-09-14 09:32] VITALS: BP 137/69; O2SAT 98
[2024-09-14 18:31] VITALS: BP 155/77
[2024-09-15] MEDS ORDERED: SODIUM CHLORIDE 0.45 % 1,000 ML IV SCH (00:15)
[2024-09-15] MEDS ORDERED: POTASSIUM PHOS,M-BASIC-D-BASIC 9 MM in 0.9 % SODIUM CHLORIDE 250 ML IV ONE (00:15)
[2024-09-15 00:37] VITALS: BP 138/72
[2024-09-15 08:36] VITALS: BP 120/90; O2SAT 99
[2024-09-15] MEDS ORDERED: POTASSIUM PHOS,M-BASIC-D-BASIC 18 MM in 0.9 % SODIUM CHLORIDE 500 ML IV ONE (10:00)
[2024-09-15 17:39] VITALS: BP 111/50
[2024-09-15 22:07] LABS: ALBUMIN 1.7 gm/dL (3.4-5.0); CALCIUM 8.1 mg/dL (8.5-10.1); CREATININE SERUM 0.42 mg/dL (0.55-1.02); GFR 142.72; MAGNESIUM 1.5 mg/dL (1.8-2.4); PHOSPHOROUS 2.6 mg/dL (2.5-4.9); POTASSIUM 3.62 mEq/L (3.5-5.1)
[2024-09-16 02:28] VITALS: BP 121/67; O2SAT 97
[2024-09-16 06:11] LABS: HEMATOCRIT 29.2 % (36.0-45.00); HEMOGLOBIN 9.7 g/dL (12.0-15.00); MEAN CORPUSCULAR HEMOGLOBIN 29.6 pg (27.00-32.0); MEAN CORPUSCULAR HGB CONC 33.2 g/dl (32.0-36.0); PLATELET COUNT 247 K/uL (150-450); RED BLOOD COUNT 3.29 M/uL (4.00-6.00); RED CELL DISTRIBUTION WIDTH 15.7 % (11.5-14.5)
[2024-09-16 06:57] LABS: ALBUMIN 1.5 gm/dL (3.4-5.0); BILIRUBIN TOTAL 0.34 mg/dL (0.3-1.2); CALCIUM 7.9 mg/dL (8.5-10.1); CREATININE SERUM 0.35 mg/dL (0.55-1.02); GFR 176.14; GLOBULINA 3.5 G/DL (2.4-3.5); POTASSIUM 3.56 mEq/L (3.5-5.1)
[2024-09-16 08:00] VITALS: BP 140/73
[2024-09-16 09:52] LABS: URINE APPEARANCE Cloudy; URINE BILIRRUBIN Negative (NEGATIVE); URINE BLOOD Negative; URINE COLOR Yellow; URINE GLUCOSE Negative (NEGATIVE); URINE KETONE Negative (NEGATIVE); URINE LEUKOCYTE Moderate; URINE NITRATE Negative; URINE PROTEIN Negative (NEGATIVE)
[2024-09-16 09:59] LABS: URINE BACTERIA 305.9 uL (0.0-1933); URINE EPITHELIAL CELLS 26.1 uL (0.0-38.8); URINE RBC 40.8 uL (0.0-20.8); URINE WBC 447.7 uL (0.0-23.2)
[2024-09-16 10:58] LABS: URINE CAST 0.44 uL (0.0-1.40); URINE YEAST MANY /hpf
[2024-09-16 17:56] VITALS: BP 110/55
[2024-09-16 18:58] LABS: ABG PH 7.485 (7.35-7.45); ABG PO2 100.8 mmHg (80-100); ABG pCO2 38.6 mmHg (35-45); BASE EXCESS 4.8 mmol/l; BICARBONATE 28.4 mmol/l (23-25); SaO2 98.3 %; Tco2 29.6 mmol/l
[2024-09-16 19:09] LABS: allen test SATISFACTORY; o2 21 %; puncture site RADIAL RIGHT
[2024-09-16 20:07] LABS: LDH 302 U/L (84-246); PHOSPHOKINASE CREATININE 56 U/L (26-192)
[2024-09-16 21:12] LABS: ob NEGATIVE (NEGATIVE)
[2024-09-17 01:00] VITALS: BP 121/67
[2024-09-17 08:22] VITALS: BP 152/81
[2024-09-17 08:45] VITALS: BP 148/69
[2024-09-17] MEDS ORDERED: MEGESTROL ACETATE 400 MG/10 ML BLIST PACK PO SCH (09:00)
[2024-09-17] MEDS ORDERED: MULTIVIT INFUSN,ADULT 4,VIT K 10 ML VIAL IV SCH (09:00)
[2024-09-17] MEDS ORDERED: AMINO ACIDS/PROTEIN HYDROLYS 30 ML BLIST.PACK PO SCH (09:00)
[2024-09-17] MEDS ORDERED: RIVAROXABAN 10 MG TAB PO SCH (09:00)
[2024-09-17] MEDS ORDERED: CEFTAZIDIME/AVIBACTAM 1.25GM/100ML NSS PB IV SCH (17:00)
[2024-09-17 17:47] VITALS: BP 122/55; O2SAT 100
[2024-09-17] MEDS ORDERED: PANTOPRAZOLE SODIUM 40 MG TABLET.DR PO SCH (21:00)
[2024-09-17] MEDS ORDERED: POLYETHYLENE GLYCOL 3350 17 GM BLIST.PACK PO SCH (21:00)
[2024-09-17] MEDS ORDERED: DEXTROSE 50 % IN WATER 0.5 G/ML DISP.SYRIN IV PRN (22:15)
[2024-09-17] MEDS ORDERED: INSULIN LISPRO 1,000 UNIT/10 ML UNITS SUBCUTANEO PRN (22:15)
[2024-09-18 02:49] VITALS: BP 159/80
[2024-09-18 06:23] LABS: HEMATOCRIT 30.9 % (36.0-45.00); HEMOGLOBIN 10.2 g/dL (12.0-15.00); MEAN CELL VOLUME 88.5 fL (80.00-100.00); MEAN CORPUSCULAR HEMOGLOBIN 29.1 pg (27.00-32.0); MEAN CORPUSCULAR HGB CONC 32.9 g/dl (32.0-36.0); PLATELET COUNT 246 K/uL (150-450); RED BLOOD COUNT 3.49 M/uL (4.00-6.00); RED CELL DISTRIBUTION WIDTH 15.5 % (11.5-14.5)
[2024-09-18 06:40] LABS: ALBUMIN 1.7 gm/dL (3.4-5.0); BILIRUBIN TOTAL 0.4 mg/dL (0.3-1.2); CALCIUM 8.2 mg/dL (8.5-10.1); CREATININE SERUM 0.34 mg/dL (0.55-1.02); GFR 182.13; GLOBULINA 3.7 G/DL (2.4-3.5); POTASSIUM 3.81 mEq/L (3.5-5.1); TOTAL PROTEIN 5.4 gm/dL (6.4-8.2)
[2024-09-18] MEDS ORDERED: hydrALAZINE HCL 20 MG VIAL IV PRN (08:15)
[2024-09-18] MEDS ORDERED: SUCRALFATE 1 G TABLET PO NR (08:45)
[2024-09-18] MEDS ORDERED: IRBESARTAN 150 MG TABLET PO SCH (09:00)
[2024-09-18 09:22] VITALS: BP 88/58; O2SAT 96
[2024-09-18] MEDS ORDERED: FLUCONAZOLE IN NACL,ISO-OSM 400 MG/200 ML PIGGYBAG IV NR (14:00)
[2024-09-18 17:47] VITALS: BP 95/60
[2024-09-19 02:55] VITALS: BP 135/71
[2024-09-19] MEDS ORDERED: SUCRALFATE 1 G TABLET PO SCH (06:00)
[2024-09-19 09:53] VITALS: BP 136/61; O2SAT 98
[2024-09-19] MEDS ORDERED: FLUCONAZOLE IN NACL,ISO-OSM 200 MG/100 ML PIGGYBAG IV SCH (12:00)
[2024-09-19 17:15] VITALS: BP 127/81
[2024-09-20 03:06] VITALS: BP 135/65
[2024-09-20 08:53] VITALS: BP 118/54
[2024-09-20 17:54] VITALS: BP 118/55; O2SAT 99
[2024-09-21 03:47] VITALS: BP 120/56
[2024-09-21 05:30] LABS: HEMATOCRIT 28.7 % (36.0-45.00); HEMOGLOBIN 9.5 g/dL (12.0-15.00); MEAN CELL VOLUME 89.3 fL (80.00-100.00); MEAN CORPUSCULAR HEMOGLOBIN 29.7 pg (27.00-32.0); MEAN CORPUSCULAR HGB CONC 33.3 g/dl (32.0-36.0); PLATELET COUNT 224 K/uL (150-450); RED BLOOD COUNT 3.21 M/uL (4.00-6.00)
[2024-09-21 05:54] LABS: ALBUMIN 1.7 gm/dL (3.4-5.0); CALCIUM 8.7 mg/dL (8.5-10.1); CREATININE SERUM 0.46 mg/dL (0.55-1.02); GFR 128.5; MAGNESIUM 1.9 mg/dL (1.8-2.4); POTASSIUM 4.08 mEq/L (3.5-5.1)
[2024-09-21 06:03] LABS: PHOSPHOROUS 1.3 mg/dL (2.5-4.9)
[2024-09-21 08:13] LABS: PH,URINE 7.5 (5.0-8.0); URINE APPEARANCE Clear; URINE BILIRRUBIN Negative (NEGATIVE); URINE BLOOD Negative; URINE COLOR Yellow; URINE GLUCOSE Negative (NEGATIVE); URINE KETONE Negative (NEGATIVE); URINE LEUKOCYTE Trace; URINE NITRATE Negative; URINE PROTEIN Negative (NEGATIVE); URINE UROBILINOGEN 0.2 E.U./dl
[2024-09-21] MEDS ORDERED: POTASSIUM PHOS,M-BASIC-D-BASIC 3 MM/ML VIAL IV NR (08:15)
[2024-09-21 08:17] LABS: URINE BACTERIA 4.8 uL (0.0-1933); URINE RBC 6.6 uL (0.0-20.8); URINE WBC 23.1 uL (0.0-23.2)
[2024-09-21 09:08] LABS: URINE CAST 1.03 uL (0.0-1.40); URINE EPITHELIAL CELLS 0.4 uL (0.0-38.8)
[2024-09-21 09:10] LABS: URINE YEAST MODERATE /hpf
[2024-09-21 09:19] VITALS: BP 158/71
[2024-09-21 19:29] VITALS: BP 110/57
[2024-09-22 03:31] VITALS: BP 132/60
[2024-09-22 09:12] VITALS: BP 156/90; O2SAT 98
[2024-09-22 12:17] LABS: ALBUMIN 1.8 gm/dL (3.4-5.0); BILIRUBIN TOTAL 0.44 mg/dL (0.3-1.2); CREATININE SERUM 0.5 mg/dL (0.55-1.02); GFR 116.71; GLOBULINA 4.5 G/DL (2.4-3.5); MAGNESIUM 2.1 mg/dL (1.8-2.4); PHOSPHOROUS 3.1 mg/dL (2.5-4.9); POTASSIUM 4.28 mEq/L (3.5-5.1); TOTAL PROTEIN 6.3 gm/dL (6.4-8.2)
[2024-09-22 17:11] VITALS: BP 122/60
[2024-09-23 02:00] VITALS: BP 111/50
[2024-09-23 09:24] VITALS: BP 127/71; O2SAT 98
[2024-09-23 18:24] VITALS: BP 125/71
[2024-09-24 01:47] VITALS: BP 121/58
[2024-09-24 06:16] LABS: HEMATOCRIT 29.1 % (36.0-45.00); HEMOGLOBIN 9.6 g/dL (12.0-15.00); MEAN CELL VOLUME 89.3 fL (80.00-100.00); MEAN CORPUSCULAR HEMOGLOBIN 29.5 pg (27.00-32.0); PLATELET COUNT 314 K/uL (150-450); RED BLOOD COUNT 3.26 M/uL (4.00-6.00); RED CELL DISTRIBUTION WIDTH 16.7 % (11.5-14.5)
[2024-09-24 06:55] LABS: ALBUMIN 1.9 gm/dL (3.4-5.0); BILIRUBIN TOTAL 0.43 mg/dL (0.3-1.2); CALCIUM 8.7 mg/dL (8.5-10.1); CREATININE SERUM 0.44 mg/dL (0.55-1.02); GFR 135.26; MAGNESIUM 1.9 mg/dL (1.8-2.4); PHOSPHOROUS 2.4 mg/dL (2.5-4.9); POTASSIUM 3.99 mEq/L (3.5-5.1); TOTAL PROTEIN 5.9 gm/dL (6.4-8.2)
[2024-09-24 08:41] VITALS: BP 116/56
[2024-09-24] MEDS ORDERED: POTASSIUM PHOS,M-BASIC-D-BASIC 9 MM in 0.9 % SODIUM CHLORIDE 250 ML IV NR (13:45)
[2024-09-24 17:36] VITALS: BP 116/55; O2SAT 97
[2024-09-25 03:21] VITALS: BP 116/57
[2024-09-25 08:59] VITALS: BP 115/62
[2024-09-25 18:39] VITALS: BP 112/59
[2024-09-26 03:11] VITALS: BP 139/74; O2SAT 96
[2024-09-26 09:24] VITALS: BP 149/73; O2SAT 97
[2024-09-26] MEDS ORDERED: SOD FERRIC GLUC COMPLX/SUCROSE 62.5 MG in 0.9 % SODIUM CHLORIDE 50 ML IV SCH (17:00)
[2024-09-26 17:46] VITALS: BP 94/59
[2024-09-27 01:55] VITALS: BP 105/59; O2SAT 99
[2024-09-27 08:31] LABS: HEMATOCRIT 29.6 % (36.0-45.00); MEAN CELL VOLUME 91.4 fL (80.00-100.00); MEAN CORPUSCULAR HGB CONC 32.3 g/dl (32.0-36.0); PLATELET COUNT 329 K/uL (150-450); RED BLOOD COUNT 3.23 M/uL (4.00-6.00); RED CELL DISTRIBUTION WIDTH 17.9 % (11.5-14.5)
[2024-09-27 08:40] LABS: HEMOGLOBIN 9.6 g/dL (12.0-15.00); MEAN CORPUSCULAR HEMOGLOBIN 29.7 pg (27.00-32.0)
[2024-09-27 09:07] LABS: BILIRUBIN TOTAL 0.4 mg/dL (0.3-1.2); CALCIUM 8.8 mg/dL (8.5-10.1); CREATININE SERUM 0.51 mg/dL (0.55-1.02); GFR 114.07; GLOBULINA 4.2 G/DL (2.4-3.5); MAGNESIUM 2.2 mg/dL (1.8-2.4); PHOSPHOROUS 2.7 mg/dL (2.5-4.9); POTASSIUM 5.11 mEq/L (3.5-5.1); TOTAL PROTEIN 6.2 gm/dL (6.4-8.2)
[2024-09-27 09:50] VITALS: BP 116/69; O2SAT 97
[2024-09-27 18:25] VITALS: BP 104/60; O2SAT 100
[2024-09-28 02:52] VITALS: BP 133/59; O2SAT 98
[2024-09-28 12:08] VITALS: BP 145/90
[2024-09-28 14:51] LABS: PH,URINE 7.5 (5.0-8.0); URINE APPEARANCE Clear; URINE BILIRRUBIN Negative (NEGATIVE); URINE COLOR Yellow; URINE GLUCOSE Negative (NEGATIVE); URINE KETONE Negative (NEGATIVE); URINE LEUKOCYTE Negative; URINE NITRATE Negative; URINE UROBILINOGEN 0.2 E.U./dl
[2024-09-28 15:34] LABS: URINE BACTERIA 6.1 uL (0.0-1933); URINE BLOOD TRACES; URINE EPITHELIAL CELLS 0.6 uL (0.0-38.8); URINE PROTEIN Trace (NEGATIVE); URINE RBC 31.9 uL (0.0-20.8); URINE WBC 4.2 uL (0.0-23.2)
[2024-09-28 19:25] VITALS: BP 141/79; O2SAT 99
[2024-09-29 01:20] VITALS: BP 149/54; O2SAT 99
[2024-09-29 08:30] LABS: HEMATOCRIT 30.5 % (36.0-45.00); HEMOGLOBIN 10.1 g/dL (12.0-15.00); MEAN CORPUSCULAR HEMOGLOBIN 29.9 pg (27.00-32.0); MEAN CORPUSCULAR HGB CONC 33.3 g/dl (32.0-36.0); PLATELET COUNT 340 K/uL (150-450); RED BLOOD COUNT 3.39 M/uL (4.00-6.00); RED CELL DISTRIBUTION WIDTH 18.2 % (11.5-14.5)
[2024-09-29 09:18] LABS: BILIRUBIN TOTAL 0.44 mg/dL (0.3-1.2); CALCIUM 9.1 mg/dL (8.5-10.1); CREATININE SERUM 0.58 mg/dL (0.55-1.02); GFR 98.34; GLOBULINA 4.3 G/DL (2.4-3.5); PHOSPHOROUS 2.9 mg/dL (2.5-4.9); POTASSIUM 4.33 mEq/L (3.5-5.1); TOTAL PROTEIN 6.3 gm/dL (6.4-8.2)
[2024-09-29 09:23] VITALS: BP 138/90
[2024-09-29] MEDS ORDERED: DIPHENHYDRAMINE HCL 50 MG/ML VIAL 1ML IV STA (10:52)
[2024-09-29] MEDS ORDERED: METHYLPREDNISOLONE SOD SUCC 40 MG VIAL IV STA (10:52)
[2024-09-29] MEDS ORDERED: SOD FERRIC GLUC COMPLX/SUCROSE 62.5 MG/5 ML AMPUL IV ONE (16:18)
[2024-09-29 16:29] VITALS: BP 118/69
[2024-09-30 02:50] VITALS: BP 152/75
[2024-09-30 08:00] VITALS: BP 110/69
[2024-09-30 16:34] VITALS: BP 97/60
[2024-10-01 02:35] VITALS: BP 139/50
[2024-10-01 05:19] LABS: HEMATOCRIT 28.6 % (36.0-45.00); MEAN CELL VOLUME 91.5 fL (80.00-100.00); MEAN CORPUSCULAR HGB CONC 33.4 g/dl (32.0-36.0); PLATELET COUNT 259 K/uL (150-450); RED BLOOD COUNT 3.13 M/uL (4.00-6.00); RED CELL DISTRIBUTION WIDTH 18.2 % (11.5-14.5)
[2024-10-01 05:26] LABS: BILIRUBIN TOTAL 0.57 mg/dL (0.3-1.2); CALCIUM 9.3 mg/dL (8.5-10.1); CREATININE SERUM 0.64 mg/dL (0.55-1.02); GLOBULINA 4.1 G/DL (2.4-3.5); MAGNESIUM 1.9 mg/dL (1.8-2.4); PHOSPHOROUS 2.4 mg/dL (2.5-4.9); POTASSIUM 4.12 mEq/L (3.5-5.1); TOTAL PROTEIN 6.1 gm/dL (6.4-8.2)
[2024-10-01 05:27] LABS: C-REACTIVE PROTEIN 6.22 MG/DL (0.00-0.29); GFR 87.78
[2024-10-01 05:31] LABS: HEMOGLOBIN 9.6 g/dL (12.0-15.00); MEAN CORPUSCULAR HEMOGLOBIN 30.6 pg (27.00-32.0)
[2024-10-01] MEDS ORDERED: NOREPINEPHRINE BITARTRATE 4 MG in DEXTROSE 5 % IN WATER 250 ML IV SCH (09:15)
[2024-10-01] MEDS ORDERED: 0.9 % SODIUM CHLORIDE 500 ML IV ONE (09:15)
[2024-10-01 09:32] VITALS: BP 90/45
[2024-10-01] MEDS ORDERED: GENTAMICIN SULFATE 40 MG/ML VIAL IV NR (12:30)
[2024-10-01] MEDS ORDERED: MEROPENEM 500 MG/VIAL VIAL IV SCH (13:00)
[2024-10-01] MEDS ORDERED: DOXYCYCLINE HYCLATE 100MG IV ONE (16:02)
[2024-10-01] MEDS ORDERED: DOXYCYCLINE HYCLATE 100MG IV SCH (17:00)
[2024-10-01 17:32] LABS: ABG PH 7.538 (7.35-7.45); ABG PO2 93.4 mmHg (80-100); BASE EXCESS 0 mmol/l; BICARBONATE 20.8 mmol/l (23-25); SaO2 98.2 %; Tco2 21.5 mmol/l
[2024-10-01 18:32] LABS: o2 21 %
[2024-10-01 18:33] LABS: allen test SATISFACTORY; puncture site BRADIAL RIGHT
[2024-10-01 19:37] VITALS: BP 121/66; O2SAT 98
[2024-10-01 20:34] VITALS: O2SAT 100
[2024-10-02] VITALS (9 sets, daily range): BP systolic 99–144; BP diastolic 55–77; O2SAT 100
[2024-10-02] MEDS ORDERED: DOXYCYCLINE HYCLATE 100MG IV ONE ×2 (05:02→16:14)
[2024-10-02] MEDS ORDERED: ENOXAPARIN SODIUM 30 MG/0.3 ML SYRINGE SUBCUTANEO SCH (09:00)
[2024-10-02] MEDS ORDERED: PANTOPRAZOLE SODIUM 40 MG/VIAL VIAL IV PUSH SCH (09:00)
[2024-10-02] MEDS ORDERED: FUROsemide 20 MG/2 ML VIAL IV PRN (09:15)
[2024-10-02] MEDS ORDERED: ALBUMIN HUMAN 100 ML VIAL IV SCH (10:37)
[2024-10-02] MEDS ORDERED: HYDROCORTISONE SODIUM SUCC/PF 100 MG VIAL IV STA (10:40)
[2024-10-02] MEDS ORDERED: RINGERS SOLUTION,LACTATED 1,000 ML IV SCH (12:15)
[2024-10-02] MEDS ORDERED: SULFAMETHOXAZOLE/TRIMETHOPRIM 16 MG/ML VIAL IV SCH (17:00)
[2024-10-02] MEDS ORDERED: SULFAMETHOXAZOLE/TRIMETHOPRIM 16 MG/ML 10ML VIAL IV SCH (17:00)
[2024-10-02] MEDS ORDERED: HYDROCORTISONE SODIUM SUCC/PF 50 MG/ML ML IV SCH (18:00)
[2024-10-03] VITALS (9 sets, daily range): BP systolic 102–152; BP diastolic 60–89; O2SAT 95–100
[2024-10-03] MEDS ORDERED: DOXYCYCLINE HYCLATE 100MG IV ONE ×2 (03:53→16:53)
[2024-10-03 06:49] LABS: BILIRUBIN TOTAL 0.42 mg/dL (0.3-1.2); CALCIUM 9.2 mg/dL (8.5-10.1); CREATININE SERUM 0.68 mg/dL (0.55-1.02); GFR 81.85; MAGNESIUM 2.2 mg/dL (1.8-2.4); POTASSIUM 4.03 mEq/L (3.5-5.1)
[2024-10-03 08:03] LABS: MEAN CORPUSCULAR HGB CONC 34.3 g/dl (32.0-36.0); RED BLOOD COUNT 2.45 M/uL (4.00-6.00)
[2024-10-03 08:22] LABS: MEAN CORPUSCULAR HEMOGLOBIN 30.6 pg (27.00-32.0); RED CELL DISTRIBUTION WIDTH 18.6 % (11.5-14.5)
[2024-10-03 08:23] LABS: PLATELET COUNT 153 K/uL (150-450)
[2024-10-03 08:29] LABS: C-REACTIVE PROTEIN 8.18 MG/DL (0.00-0.29); HEMOGLOBIN 7.5 g/dL (12.0-15.00); PHOSPHOROUS 1.8 mg/dL (2.5-4.9)
[2024-10-03] MEDS ORDERED: POTASSIUM PHOS,M-BASIC-D-BASIC 45mM/15ml VIAL IV SCH (12:00)
[2024-10-03 14:12] LABS: ABG PH 7.522 (7.35-7.45); ABG PO2 147.8 mmHg (80-100); ABG pCO2 29.6 mmHg (35-45); BICARBONATE 23.7 mmol/l (23-25); SaO2 99.5 %; Tco2 24.6 mmol/l
[2024-10-03 14:48] LABS: allen test SATISFACTORY; o2 35 %; puncture site RADIAL LEFT
[2024-10-03] MEDS ORDERED: HYDROCORTISONE SODIUM SUCC/PF 50 MG/ML ML IV SCH (18:00)
[2024-10-04] VITALS (9 sets, daily range): BP systolic 98–138; BP diastolic 46–60; O2SAT 97–100
[2024-10-04] MEDS ORDERED: DOXYCYCLINE HYCLATE 100MG IV ONE ×2 (04:31→17:14)
[2024-10-04] MEDS ORDERED: FUROsemide 20 MG/2 ML VIAL ONE (19:08)
[2024-10-05] VITALS (9 sets, daily range): BP systolic 125–157; BP diastolic 52–80; O2SAT 98–100
[2024-10-05 00:52] LABS: ABG PH 7.532 (7.35-7.45); ABG pCO2 26.3 mmHg (35-45); BASE EXCESS 0.5 mmol/l; BICARBONATE 21.6 mmol/l (23-25); SaO2 99.7 %; Tco2 22.4 mmol/l
[2024-10-05 01:05] LABS: allen test SATISFACTORY; puncture site RADIAL RIGHT
[2024-10-05 01:06] LABS: o2 35 %
[2024-10-05 01:43] LABS: HEMATOCRIT 30.9 % (36.0-45.00); HEMOGLOBIN 10.4 g/dL (12.0-15.00); MEAN CORPUSCULAR HGB CONC 33.7 g/dl (32.0-36.0); PLATELET COUNT 164 K/uL (150-450); RED CELL DISTRIBUTION WIDTH 19.3 % (11.5-14.5)
[2024-10-05 01:44] LABS: CALCIUM 9.4 mg/dL (8.5-10.1); CREATININE SERUM 0.71 mg/dL (0.55-1.02); GFR 77.87; POTASSIUM 4.31 mEq/L (3.5-5.1)
[2024-10-05 01:45] LABS: PHOSPHOROUS 2.1 mg/dL (2.5-4.9)
[2024-10-05] MEDS ORDERED: LEVALBUTEROL HCL 1.25 MG/3 ML SOLUTION IH STA (03:39)
[2024-10-05] MEDS ORDERED: LEVALBUTEROL HCL 1.25 MG/3 ML SOLUTION IH SCH (09:00)
[2024-10-05] MEDS ORDERED: BUDESONIDE 0.5 MG/2 ML AMPUL.NEB IH SCH (09:00)
[2024-10-05] MEDS ORDERED: POTASSIUM PHOS,M-BASIC-D-BASIC 18 MM in 0.9 % SODIUM CHLORIDE 250 ML IV ONE (16:00)
[2024-10-05 23:24] LABS: BILIRUBIN TOTAL 0.74 mg/dL (0.3-1.2); BILIRUBIN,CONJUGATED 0.29 mg/dL (0.0-0.2); BILIRUBIN,UNCONJUGATED 0.45 mg/dL (0.0-0.6); TOTAL PROTEIN 5.7 gm/dL (6.4-8.2)
[2024-10-06] VITALS (8 sets, daily range): BP systolic 145–172; BP diastolic 62–80; O2SAT 98–99
[2024-10-06] MEDS ORDERED: SODIUM CHLORIDE 0.45 % 1,000 ML IV SCH (10:45)
[2024-10-06] MEDS ORDERED: HYDROCORTISONE SODIUM SUCC/PF 50 MG/ML ML IV SCH (17:00)
[2024-10-07] VITALS (7 sets, daily range): BP systolic 137–148; BP diastolic 60–91; O2SAT 98–100
[2024-10-07] MEDS ORDERED: [UNRECOGNIZED DRUG - OTHER] IV SCH (14:00)
[2024-10-07] MEDS ORDERED: VANCOMYCIN HCL 500 MG VIAL IV SCH (17:00)
[2024-10-08] VITALS (9 sets, daily range): BP systolic 115–140; BP diastolic 53–82; O2SAT 98–100
[2024-10-08 06:17] LABS: HEMATOCRIT 29.8 % (36.0-45.00); HEMOGLOBIN 10.1 g/dL (12.0-15.00); MEAN CELL VOLUME 88.9 fL (80.00-100.00); MEAN CORPUSCULAR HGB CONC 33.7 g/dl (32.0-36.0); PLATELET COUNT 198 K/uL (150-450); RED BLOOD COUNT 3.35 M/uL (4.00-6.00); RED CELL DISTRIBUTION WIDTH 18.3 % (11.5-14.5)
[2024-10-08 07:17] LABS: ALBUMIN 2.8 gm/dL (3.4-5.0); BILIRUBIN TOTAL 0.74 mg/dL (0.3-1.2); CALCIUM 8.8 mg/dL (8.5-10.1); CREATININE SERUM 0.51 mg/dL (0.55-1.02); GFR 114.07; GLOBULINA 2.7 G/DL (2.4-3.5); PHOSPHOROUS 2.5 mg/dL (2.5-4.9); POTASSIUM 4.2 mEq/L (3.5-5.1); TOTAL PROTEIN 5.5 gm/dL (6.4-8.2)
[2024-10-08 07:20] LABS: C-REACTIVE PROTEIN 1.27 MG/DL (0.00-0.29)
[2024-10-09] VITALS (8 sets, daily range): BP systolic 126–151; BP diastolic 60–74; O2SAT 100
[2024-10-10] VITALS (9 sets, daily range): BP systolic 121–150; BP diastolic 62–71; O2SAT 89–100
[2024-10-10] MEDS ORDERED: VANCOMYCIN HCL 5 MG/ML REDILUIDO IV SCH (17:00)
[2024-10-11] VITALS (8 sets, daily range): BP systolic 124–153; BP diastolic 69–74; O2SAT 99–100
[2024-10-12] VITALS (8 sets, daily range): BP systolic 119–132; BP diastolic 57–72; O2SAT 95–100
[2024-10-13 00:17] VITALS: BP 140/76; O2SAT 100
[2024-10-13 08:23] VITALS: BP 90/62
[2024-10-13] MEDS ORDERED: DIPHENHYDRAMINE HCL 25 MG in 0.9 % SODIUM CHLORIDE 25 ML IV SCH (14:00)
[2024-10-13 14:02] LABS: HEMATOCRIT 33.4 % (36.0-45.00); HEMOGLOBIN 11.1 g/dL (12.0-15.00); MEAN CELL VOLUME 89.4 fL (80.00-100.00); MEAN CORPUSCULAR HEMOGLOBIN 29.6 pg (27.00-32.0); MEAN CORPUSCULAR HGB CONC 33.1 g/dl (32.0-36.0); PLATELET COUNT 290 K/uL (150-450); RED BLOOD COUNT 3.73 M/uL (4.00-6.00); RED CELL DISTRIBUTION WIDTH 18.2 % (11.5-14.5)
[2024-10-13 14:46] LABS: ALBUMIN 3.2 gm/dL (3.4-5.0); BILIRUBIN TOTAL 0.68 mg/dL (0.3-1.2); CALCIUM 9.4 mg/dL (8.5-10.1); CREATININE SERUM 0.46 mg/dL (0.55-1.02); GFR 128.5; GLOBULINA 3.1 G/DL (2.4-3.5); POTASSIUM 4.09 mEq/L (3.5-5.1); TOTAL PROTEIN 6.3 gm/dL (6.4-8.2)
[2024-10-13 16:21] VITALS: BP 147/81
[2024-10-13 17:37] VITALS: O2SAT 99
[2024-10-13] MEDS ORDERED: PERMETHRIN 60 GM TUBE TOP NR (18:00)
[2024-10-13 21:27] VITALS: O2SAT 100
[2024-10-14] VITALS (9 sets, daily range): BP systolic 92–151; BP diastolic 50–90; O2SAT 98–100
[2024-10-15 00:40] VITALS: O2SAT 99
[2024-10-15 02:43] VITALS: BP 96/53; O2SAT 99
[2024-10-15 06:11] VITALS: O2SAT 98
[2024-10-15 09:56] VITALS: BP 126/57; O2SAT 97
[2024-10-15] MEDS ORDERED: APETIGEN P12.5 MG/15 PO (11:38)
[2024-10-15] MEDS ORDERED: SIMVASTATIN20 MG PO (11:38)
[2024-10-15] MEDS ORDERED: PANTOPRAZOLE SO40 MG PO (11:38)
[2024-10-15] MEDS ORDERED: ARICEPT10 MG PO (11:38)
[2024-10-15] MEDS ORDERED: AVAPRO150 MG PO (11:38)
[2024-10-15] MEDS ORDERED: FERROCITE324 MG PO (11:38)
[2024-10-15] MEDS ORDERED: PLAVIX75 MG PO (11:46)
[2024-10-15 13:39] VITALS: O2SAT 98
[2024-10-15 18:32] VITALS: BP 104/66
== END 2024-10-15 19:20 | disposition home or self-care (01) | DRG 853 ==
LOC: ER 14:06 → EDBD 23:31 → MEDJ 23:31
PROVIDERS: Emergency Medicine; Internal Medicine; Internal Medicine Infectious Disease; ADMIT Internal Medicine; ATTEND Internal Medicine
PROC: BW3GYZZ Magnetic Resonance Imaging (MRI) of Pelvic Region using Other Contrast (ICD-10-PCS; 2024-09-14)
PROC: 0JB70ZZ Excision of Back Subcutaneous Tissue and Fascia, Open Approach (ICD-10-PCS; 2024-09-15)
PROC: 02HV33Z Insertion of Infusion Device into Superior Vena Cava, Percutaneous Approach (ICD-10-PCS; 2024-09-15)
PROC: 3E04329 Introduction of Other Anti-infective into Central Vein, Percutaneous Approach (ICD-10-PCS; 2024-09-15)
PROC: 4A12X4Z Monitoring of Cardiac Electrical Activity, External Approach (ICD-10-PCS; 2024-09-16)
PROC: B54DZZZ Ultrasonography of Bilateral Lower Extremity Veins (ICD-10-PCS; 2024-09-16)
PROC: 8E0ZXY6 Isolation (ICD-10-PCS; 2024-09-17)
PROC: B246ZZZ Ultrasonography of Right and Left Heart (ICD-10-PCS; 2024-09-17)
PROC: 0JB70ZZ Excision of Back Subcutaneous Tissue and Fascia, Open Approach (ICD-10-PCS; 2024-09-24)
PROC: 0JBL0ZZ Excision of Right Upper Leg Subcutaneous Tissue and Fascia, Open Approach (ICD-10-PCS; principal; 2024-09-30)
PROC: 0JB70ZZ Excision of Back Subcutaneous Tissue and Fascia, Open Approach (ICD-10-PCS; 2024-09-30)
PROC: 30233N1 Transfusion of Nonautologous Red Blood Cells into Peripheral Vein, Percutaneous Approach (ICD-10-PCS; 2024-10-04)
PROC: 3E0F7GC Introduction of Other Therapeutic Substance into Respiratory Tract, Via Natural or Artificial Opening (ICD-10-PCS; 2024-10-05)
PROC: 0JBL0ZZ Excision of Right Upper Leg Subcutaneous Tissue and Fascia, Open Approach (ICD-10-PCS; 2024-10-07)
PROC: 0JB70ZZ Excision of Back Subcutaneous Tissue and Fascia, Open Approach (ICD-10-PCS; 2024-10-07)
PROC: 0JB70ZZ Excision of Back Subcutaneous Tissue and Fascia, Open Approach (ICD-10-PCS; 2024-10-14)
PROC: 0JBR0ZZ Excision of Left Foot Subcutaneous Tissue and Fascia, Open Approach (ICD-10-PCS; 2024-10-14)
DX: A41.59 Other Gram-negative sepsis (principal); L89.154 Pressure ulcer of sacral region, stage 4; T80.218A Other infection due to central venous catheter, initial encounter; L89.213 Pressure ulcer of right hip, stage 3; B37.49 Other urogenital candidiasis; E87.0 Hyperosmolality and hypernatremia; R64 Cachexia; L89.891 Pressure ulcer of other site, stage 1; E86.0 Dehydration; E83.39 Other disorders of phosphorus metabolism; R73.03 Prediabetes; R73.9 Hyperglycemia, unspecified; D64.89 Other specified anemias; D50.9 Iron deficiency anemia, unspecified; L27.0 Generalized skin eruption due to drugs and medicaments taken internally; T36.8X5A Adverse effect of other systemic antibiotics, initial encounter; I10 Essential (primary) hypertension; E78.5 Hyperlipidemia, unspecified; G30.8 Other Alzheimer's disease; F02.80 Dementia in other diseases classified elsewhere, unspecified severity, without behavioral disturbance, psychotic disturbance, mood disturbance, and anxiety; B96.4 Proteus (mirabilis) (morganii) as the cause of diseases classified elsewhere; B96.1 Klebsiella pneumoniae [K. pneumoniae] as the cause of diseases classified elsewhere; Y84.8 Other medical procedures as the cause of abnormal reaction of the patient, or of later complication, without mention of misadventure at the time of the procedure; Z74.01 Bed confinement status
CPT/HCPCS: 72198

== ENCOUNTER 2024-10-20 22:38 | Inpatient (IN) | payer OTHER ==
[~2024-10-20] VITALS: Ht 152.4 cm; Wt 54.4 kg
[~2024-10-20 22:38] MED LIST changes: +APETIGEN P12.5 MG/15 PO; +AVAPRO150 MG PO; +PANTOPRAZOLE SO40 MG PO; +PLAVIX75 MG PO
--- NOTE | 2024-10-20 22:59 | NUR ---
SE RECIBE PACIENTE EN AMBULANCIA, ALERTA. PARAMEDICOS REFIEREN TRAELA POR ASPIRACION Y DIFICULTAD RESPIRATORIA. SE OBSERVA CANULA NASAL @3LT/MIN. [place] A GRAVEDAD, SE MONITOREAN VS Y SE REALIZA EKG.
--- NOTE | 2024-10-20 23:03 | NUR ---
PACIENTE DE SANTACRUZ ELVIS.
[2024-10-20] MEDS ORDERED: PIPERACILLIN/TAZOBACTAM SODIUM 3.375 GM VIAL IV ONE (23:15)
[2024-10-20] MEDS ORDERED: LEVALBUTEROL HCL 0.63 MG/3 ML SOLUTION IH ONE (23:15)
[2024-10-20] MEDS ORDERED: FAMOtidine 10 MG/ML (4ML VIAL) IV ONE (23:15)
[2024-10-20] MEDS ORDERED: 0.9 % SODIUM CHLORIDE 1,000 ML IV SCH (23:15)
[2024-10-20 23:42] LABS: HEMATOCRIT 40.6 % (36.0-45.00); MEAN CELL VOLUME 89.7 fL (80.00-100.00); MEAN CORPUSCULAR HEMOGLOBIN 29.8 pg (27.00-32.0); MEAN CORPUSCULAR HGB CONC 33.3 g/dl (32.0-36.0); PLATELET COUNT 384 K/uL (150-450); RED BLOOD COUNT 4.53 M/uL (4.00-6.00); RED CELL DISTRIBUTION WIDTH 17.6 % (11.5-14.5)
[2024-10-20 23:46] LABS: HEMOGLOBIN 13.5 g/dL (12.0-15.00)
[2024-10-21] VITALS (9 sets, daily range): BP systolic 67–98; BP diastolic 47–60; O2SAT 92–97
[2024-10-21 00:01] LABS: ABG PH 7.469 (7.35-7.45); ABG PO2 43.7 mmHg (80-100); ABG pCO2 31.5 mmHg (35-45); BASE EXCESS -0.4 mmol/l; BICARBONATE 22.3 mmol/l (23-25); SaO2 82.7 %; Tco2 23.3 mmol/l
[2024-10-21 00:02] LABS: allen test NO SATISFACTORY; o2 40 %; puncture site RADIAL RIGHT
[2024-10-21 00:02] LABS: INR 1.09; PARTIAL THROMBOPLASTIN TIME 28.4 SECONDS (22.0-34.0); PROTHROMBIN TIME 11.8 SECONDS (9.0-11.5)
[2024-10-21] MEDS ORDERED: METOCLOPRAMIDE HCL 5 MG/ML VIAL IM STA (00:04)
[2024-10-21] MEDS ORDERED: PROMETHAZINE HCL 50 MG/ML AMPUL IM STA (00:05)
[2024-10-21 00:06] LABS: ALBUMIN 3.6 gm/dL (3.4-5.0); BILIRUBIN TOTAL 0.69 mg/dL (0.3-1.2); CALCIUM 10.5 mg/dL (8.5-10.1); GFR 33.36; GLOBULINA 4.7 G/DL (2.4-3.5); POTASSIUM 4.43 mEq/L (3.5-5.1); TOTAL PROTEIN 8.3 gm/dL (6.4-8.2)
[2024-10-21 00:10] LABS: CREATININE SERUM 1.48 mg/dL (0.55-1.02)
--- NOTE | 2024-10-21 00:21 | NUR ---
SE RECIBE PACIENTE FEMENINA ALERTA Y DESORIENTADA X3, EN EL AREA DE CRITICO EN LA CAMA #1 CON BARANDAS ELEVADAS. CONECTADA A MONITOR CARDIACO, OXIMETRIA DE PULSO Y NON-REBREATHING AL 100%. SE REALIZA VENOPUNCION EN EL BRAZO DERECHO Y SE CANALIZA CON ANGIO #22 Y SE LE COLOCA 0.9 NSS 1,000 BAJANDO A 22ML/HR PATENTE CHARLY DE EDEMA Y ENROJECIMIENTO. SE LE NATHALIE LAS MUETRAS BURKE LA ORDEN MEDICA. SE LE INSERTA [place] #16 CON MEDIDAS ASEPTICAS Y ESTERILES, SE OBSERVA ORINA COLOR MORE. SE LE ADMINISTRAN LOS MEDICAMENTOS Y SE NOTIFICAN LAS TERAPIAS REPIRATORIAS Y LOS ABG'S. PENDIENTE EL CT DE PECHO Y ABDOMINAL. SE OBSERVA POR CAMBIOS.
[2024-10-21 01:17] LABS: URINE APPEARANCE Cloudy; URINE BILIRRUBIN Small (NEGATIVE); URINE BLOOD Small; URINE COLOR Dark Yellow; URINE GLUCOSE Negative (NEGATIVE); URINE KETONE Trace (NEGATIVE); URINE LEUKOCYTE Large; URINE NITRATE Negative; URINE PROTEIN 30 (NEGATIVE)
[2024-10-21 01:21] LABS: URINE CAST 6.77 uL (0.0-1.40); URINE EPITHELIAL CELLS 21.2 uL (0.0-38.8); URINE RBC 34.6 uL (0.0-20.8)
[2024-10-21 01:52] LABS: URINE BACTERIA > 9821.5 uL (0.0-1933); URINE CRYSTALS MODERATE /HPF
[2024-10-21] MEDS ORDERED: IPRATROPIUM BROMIDE 0.5 MG/2.5 ML AMPUL.NEB IH SCH (07:59)
[2024-10-21] MEDS ORDERED: RINGERS SOLUTION,LACTATED 1,000 ML IV SCH (08:00)
[2024-10-21] MEDS ORDERED: NOREPINEPHRINE BITARTRATE 8 MG in DEXTROSE 5 % IN WATER 250 ML IV SCH (08:15)
[2024-10-21] MEDS ORDERED: PANTOPRAZOLE SODIUM 40 MG/VIAL VIAL IV PUSH SCH (09:00)
[2024-10-21] MEDS ORDERED: LEVALBUTEROL HCL 1.25 MG/3 ML SOLUTION IH SCH (09:00)
[2024-10-21] MEDS ORDERED: ENOXAPARIN SODIUM 40 MG/0.4 ML SYRINGE SUBCUTANEO SCH (09:00)
[2024-10-21] MEDS ORDERED: MEROPENEM 1,000 MG VIAL IV SCH (09:00)
[2024-10-21] MEDS ORDERED: GENTAMICIN SULFATE 40 MG/ML VIAL IV NR (12:00)
[2024-10-21 12:42] LABS: ABG PO2 63.4 mmHg (80-100); ABG pCO2 27.5 mmHg (35-45); BASE EXCESS -3.7 mmol/l; BICARBONATE 18.6 mmol/l (23-25); SaO2 92.8 %; Tco2 19.5 mmol/l
[2024-10-21 12:43] LABS: allen test SATISFACTORY; o2 100 %; puncture site RADIAL LEFT
[2024-10-21] MEDS ORDERED: ONDANSETRON HCL 2 MG/ML VIAL IV SCH (14:00)
[2024-10-22] VITALS (20 sets, daily range): BP systolic 101–134; BP diastolic 52–72; O2SAT 95–100
[2024-10-22 06:45] LABS: URINE APPEARANCE Turbid; URINE BILIRRUBIN Moderate (NEGATIVE); URINE BLOOD Negative; URINE COLOR Dark Yellow; URINE GLUCOSE Negative (NEGATIVE); URINE KETONE Trace (NEGATIVE); URINE LEUKOCYTE Small; URINE NITRATE Negative
[2024-10-22 06:49] LABS: URINE BACTERIA 3756.3 uL (0.0-1933); URINE CAST 6.18 uL (0.0-1.40); URINE EPITHELIAL CELLS 90.5 uL (0.0-38.8); URINE RBC 392.1 uL (0.0-20.8); URINE WBC 45.5 uL (0.0-23.2)
[2024-10-22 07:03] LABS: URINE PROTEIN 100 (NEGATIVE)
[2024-10-22 07:16] LABS: URINE CRYSTALS FEW /HPF; URINE YEAST MANY /hpf
[2024-10-22 11:00] LABS: ALBUMIN 2.8 gm/dL (3.4-5.0); BILIRUBIN TOTAL 0.95 mg/dL (0.3-1.2); CALCIUM 8.7 mg/dL (8.5-10.1); CREATININE SERUM 2.67 mg/dL (0.55-1.02); GFR 16.89; GLOBULINA 3.6 G/DL (2.4-3.5); MAGNESIUM 2.1 mg/dL (1.8-2.4); PHOSPHOROUS 2.9 mg/dL (2.5-4.9); POTASSIUM 5.06 mEq/L (3.5-5.1); TOTAL PROTEIN 6.4 gm/dL (6.4-8.2)
[2024-10-22 12:41] LABS: CORTISOL 58.84 ug/dl
[2024-10-22 12:51] LABS: PROCALCITONIN 102.68 ng/ml (0.020-0.080)
[2024-10-22] MEDS ORDERED: FLUCONAZOLE IN NACL,ISO-OSM 200 MG/100 ML PIGGYBAG IV NR (13:15)
[2024-10-22 14:39] LABS: HEMATOCRIT 34.8 % (36.0-45.00); HEMOGLOBIN 11.4 g/dL (12.0-15.00); MEAN CELL VOLUME 90.6 fL (80.00-100.00); MEAN CORPUSCULAR HEMOGLOBIN 29.6 pg (27.00-32.0); MEAN CORPUSCULAR HGB CONC 32.6 g/dl (32.0-36.0); PLATELET COUNT 240 K/uL (150-450); RED BLOOD COUNT 3.84 M/uL (4.00-6.00); RED CELL DISTRIBUTION WIDTH 18.7 % (11.5-14.5)
[2024-10-22 14:59] LABS: ERYTHROCYTE SEDIMENTATION RATE 57 mm/hr
[2024-10-22 15:09] LABS: INR 1.46
[2024-10-22 15:10] LABS: PROTHROMBIN TIME 15.5 SECONDS (9.0-11.5)
[2024-10-22 15:11] LABS: PARTIAL THROMBOPLASTIN TIME 39.1 SECONDS (22.0-34.0)
[2024-10-22] MEDS ORDERED: MEROPENEM 1,000 MG VIAL IV SCH (21:00)
[2024-10-23] VITALS (18 sets, daily range): BP systolic 75–141; BP diastolic 28–86; O2SAT 95–100
[2024-10-23] MEDS ORDERED: MORPHINE SULFATE 2 MG/ML CARTRIDGE IV ONE ×2 (10:15→19:30)
[2024-10-23] MEDS ORDERED: FLUCONAZOLE IN NACL,ISO-OSM 50 ML IV SCH (12:00)
[2024-10-23] MEDS ORDERED: DEXTROSE 5 % AND 0.9 % NACL 1,000 ML IV SCH (12:00)
[2024-10-23] MEDS ORDERED: FLUCONAZOLE IN NACL,ISO-OSM 2 MG/ML ML IV SCH (13:00)
[2024-10-23] MEDS ORDERED: DOXYCYCLINE HYCLATE 100MG IV ONE (15:47)
[2024-10-23] MEDS ORDERED: SULFAMETHOXAZOLE/TRIMETHOPRIM 16 MG/ML 10ML VIAL IV SCH (17:00)
[2024-10-23] MEDS ORDERED: DOXYCYCLINE HYCLATE 100MG IV SCH (17:00)
[2024-10-24] VITALS (14 sets, daily range): BP systolic 90–133; BP diastolic 57–82; O2SAT 0–100
[2024-10-24] MEDS ORDERED: DOXYCYCLINE HYCLATE 100MG IV ONE (04:45)
[2024-10-24] MEDS ORDERED: MORPHINE SULFATE 48 MG,MORPHINE SULFATE 2 MG in 0.9 % SODIUM CHLORIDE 50 ML IV SCH (12:30)
== END 2024-10-24 20:17 | disposition expired | DRG 177 ==
LOC: ER 22:38 → MEDJ 10-21 08:24 → MEDI 10-21 08:24 → MEDJ 10-21 08:38
PROVIDERS: General Practice; Internal Medicine Infectious Disease; ADMIT Internal Medicine; ATTEND Internal Medicine
PROC: BB24ZZZ Computerized Tomography (CT Scan) of Bilateral Lungs (ICD-10-PCS; principal; 2024-10-20)
PROC: BW21ZZZ Computerized Tomography (CT Scan) of Abdomen and Pelvis (ICD-10-PCS; 2024-10-21)
PROC: 02HV33Z Insertion of Infusion Device into Superior Vena Cava, Percutaneous Approach (ICD-10-PCS; 2024-10-21)
PROC: 3E0F7GC Introduction of Other Therapeutic Substance into Respiratory Tract, Via Natural or Artificial Opening (ICD-10-PCS; 2024-10-21)
PROC: 5A0935A Assistance with Respiratory Ventilation, Less than 24 Consecutive Hours, High Flow/Velocity Cannula (ICD-10-PCS; 2024-10-21)
PROC: 4A12X4Z Monitoring of Cardiac Electrical Activity, External Approach (ICD-10-PCS; 2024-10-21)
PROC: 8E0ZXY6 Isolation (ICD-10-PCS; 2024-10-21)
PROC: 0DH68UZ Insertion of Feeding Device into Stomach, Via Natural or Artificial Opening Endoscopic (ICD-10-PCS; 2024-10-21)
PROC: 0JB73ZZ Excision of Back Subcutaneous Tissue and Fascia, Percutaneous Approach (ICD-10-PCS; 2024-10-22)
DX: J69.0 Pneumonitis due to inhalation of food and vomit (principal); R65.21 Severe sepsis with septic shock; N39.0 Urinary tract infection, site not specified; L98.428 Non-pressure chronic ulcer of back with other specified severity; L98.498 Non-pressure chronic ulcer of skin of other sites with other specified severity; K56.699 Other intestinal obstruction unspecified as to partial versus complete obstruction; B96.1 Klebsiella pneumoniae [K. pneumoniae] as the cause of diseases classified elsewhere; I10 Essential (primary) hypertension; E78.49 Other hyperlipidemia; G30.9 Alzheimer's disease, unspecified; F02.80 Dementia in other diseases classified elsewhere, unspecified severity, without behavioral disturbance, psychotic disturbance, mood disturbance, and anxiety; Z66 Do not resuscitate